=== PATIENT | male | born 1940 | race Caucasian/White ===

== ENCOUNTER → 2017-08-28 14:01 | Outpatient (CLI) | payer MEDICARE, OTHER, SELFPAY ==
--- NOTE | 2017-08-28 14:26 | CT_ITS ---
CT chest wo con HISTORY: May.REASON: GRANULOMATOUS PNEUMONIA ORDERING PHYSICIAN: Aaron Rivers MD PATIENT AGE: 77 years TECHNIQUE: Axial images obtained. Sagittal and coronal reformatted images are also generated and reviewed. CONTRAST: None COMPARISON: None FINDINGS: There is mild prominence of the ascending aorta measuring up to 4.2 cm unchanged. There are coronary artery calcifications. The heart size is normal. No mediastinal or hilar mass or adenopathy is evident. Centrilobular emphysematous changes are present. The rounded opacity previously noted in the right lung base has resolved. There are some fibrotic or atelectatic changes in the right lower lobe superior to the previously noted lesion. There is some infiltrate in the left lung base posteriorly. The left hemidiaphragm is elevated with some stranding of the retroperitoneal fat the left. There is a large left parapelvic renal cyst. IMPRESSION: 1. Near complete resolution of previously noted right lower lobe mass consistent with inflammatory or infectious etiology. There is some residual atelectasis or fibrosis in the right lower lobe posteriorly. 2. Centrilobular emphysema. 3. Patchy infiltrate or atelectasis in the left lung base posteriorly.
== END ==
PROVIDERS: Family Provider Family Medicine; PCP Family Medicine; Visit Provider Internal Medicine
DX: J18.9 Pneumonia, unspecified organism (principal)
CPT/HCPCS: 71250

== ENCOUNTER → 2017-09-04 08:35 | Outpatient (CLI) | payer MEDICARE, OTHER, SELFPAY ==
[2017-09-04 10:00] LABS: Alanine Aminotransferase 27 U/L (12-78); Aspartate Amino Transferase 15 U/L (15-37); Creatinine,Serum 1.13 mg/dL (0.70-1.30); Estimated Glomerular Filt Rate 63 ml/min (>60); GFR (African American) 76 ML/MIN (>60)
[2017-09-04 10:20] LABS: Albumin Level 3.9 gm/dL (3.4-5.0); Alkaline Phosphatase 111 U/L (46-116); Bilirubin,Total 0.7 mg/dL (0.2-1.0); Blood Urea Nitrogen 17 mg/dL (7-18); Calcium 8.8 mg/dL (8.5-10.1); Carbon Dioxide 27 mmol/L (21.0-32.0); Chol/HDL Ratio 2.4 (1-3.5); Cholesterol 127 mg/dL (140-200); Globulin 3.9 gm/dl (1.3-3.2); Glucose 94 mg/dL (74-106); HDL Cholesterol 52 mg/dL (27-67); LDL Cholesterol 60 mg/dL (0-130); Total Protein,Serum 7.8 gm/dL (6.4-8.2); Triglycerides 73 mg/dL (30-200); VLDL Cholesterol 15 mg/dL (0-40)
[2017-09-04 18:12] LABS: Anion Gap 14.2 mEq/L (5-15); Chloride 103 mmol/L (98-107); Potassium 4.2 mmoL/L (3.5-5.1); Sodium 140 mmol/L (136-145)
== END ==
PROVIDERS: Visit Provider Physician Assistant
DX: E78.5 Hyperlipidemia, unspecified (principal); I25.10 Atherosclerotic heart disease of native coronary artery without angina pectoris; I65.29 Occlusion and stenosis of unspecified carotid artery
CPT/HCPCS: 36415; 80053; 80061

== ENCOUNTER → 2017-09-05 11:39 | Outpatient (POV) | payer MEDICARE, OTHER, SELFPAY | PROVIDERS: Family Provider Family Medicine; PCP Family Medicine; Visit Provider Internal Medicine | DX: Z00.00 Encounter for general adult medical examination without abnormal findings (principal) ==

== ENCOUNTER 2018-01-29 09:38 | Inpatient (IN) ==
[2018-01-29 10:06] LABS: Basophils # 0.1 K/mm3 (0-0.2); Basophils % 0.5 % (0.1-2.0); Eosinophils # 0.2 K/mm3 (0.0-0.4); Eosinophils % 1.2 % (0.1-12.0); Hematocrit 43.8 % (42.0-52.0); Hemoglobin 14.8 g/dL (14.1-18.0); Lymphocytes # 1.9 K/mm3 (0.7-4.5); Lymphocytes % 13.2 K/mm3 (10-50); Mean Corpuscular HGB Conc 33.9 g/dL (31.8-35.4); Mean Corpuscular Hemoglobin 32.7 pg (27.0-31.2); Mean Corpuscular Volume 96.5 fl (80-94); Mean Platelet Volume 7.4 fl (7.4-10.4); Monocytes # 0.8 K/mm3 (0.1-1.0); Monocytes % 5.3 % (1.7-9.3); Neutrophils # 11.4 K/mm3 (1.8-7.8); Neutrophils % 79.9 % (37.0-80.0); Platelet Count 231 K/mm3 (142-424); Red Blood Count 4.54 M/mm3 (4.60-6.20); Red Cell Distribution Width 14.3 % (11.5-17.5); White Blood Count 14.2 K/mm3 (4.8-10.8)
--- NOTE | 2018-01-29 10:14 | Emergency Department Note ---
ED Disposition Clinical Impression: Acute on chronic respiratory failure with hypoxemia Altered mental status Qualifiers: Altered mental status type: disorientation Qualified Code(s): R41.0 - Disorientation, unspecified Disposition: Admitted as Observation Condition on Discharge: Fair Instructions: DI for Altered Mental Status Additional Instructions: Discussed with Dr. Rice and he is admitting to OBS for Confusion and Acute on Chronic respiratory failure with hypoxia Referrals: Enrique Danielson MD [Primary Care Provider] - Juan Rice MD [Staff Physician] - Time of Disposition: 11:52 - Critical Care Critical Care Time: No Attestation: On 01/29/18, the high probability of a clinically significant, sudden or life threatening deterioration of the following system(s) required my full and direct attention, intervention and personal management. The time I documented below is in addition to time spent performing reported procedures but includes the following listed in this critical care notation. Medical Decision Making - Medical Records Medical records reviewed: Yes: I reviewed the patient's medical records. - Elias Inquiry Pt receiving controlled substance: No Elias was queried for this patient: No Vital Signs: 01/29/18 09:47 01/29/18 10:35 01/29/18 11:27 Temperature 97.9 F Temperature Source Oral Pulse Rate [Right Brachial] 75 69 65 Respiratory Rate 20 18 16 Blood Pressure [Right Arm] 134/82 152/88 152/88 Blood Pressure Mean [Right Arm] 99 109 109 Blood Pressure Source [Right Arm] Automatic Cuff Automatic Cuff Automatic Cuff Blood Pressure Position [Right Arm] Supine Sitting Sitting 02 Sat by Pulse Oximetry 86 L 93 L 93 L Oxygen Delivery Method Room Air Nasal Cannula Nasal Cannula Oxygen Flow Rate (LPM) 2 2 - Lab Data Lab results reviewed: Yes: I reviewed the patient's lab results. Lab Results 01/29/18 10:00: WBC 14.2 H, RBC 4.54 L, Hgb 14.8, Hct 43.8, MCV 96.5 H, MCH 32.7 H, MCHC 33.9, RDW 14.3, Plt Count 231, MPV 7.4, Neut % (Auto) 79.9, Lymph % (Auto) 13.2, [place] % (Auto) 5.3, Eos % (Auto) 1.2, Baso % (Auto) 0.5, Neut # ( Auto) 11.4 H, Lymph # (Auto) 1.9, [place] # (Auto) 0.8, Eos # (Auto) 0.2, Baso # ( Auto) 0.1 01/29/18 10:00: Sodium 141, Potassium 3.7, Chloride 106, Carbon Dioxide 26, Anion Gap 12.7, BUN 15, Creatinine 1.14, Estimated Creat Clear 44, Estimated GFR 62, Est GFR ( Amer) 75, Glucose 96, Calcium 8.5, Total Bilirubin 0.7 , AST 19, ALT 28, Alkaline Phosphatase 108, Troponin I < 0.02, Total Protein 7.4 , Albumin 3.4, Globulin 4.0 H, Albumin/Globulin Ratio 0.9 L 01/29/18 11:00: Specimen Source L. radial, O2 % 2 lpm, ABG pH 7.46 H, ABG pCO2 31.5 L, ABG pO2 61.1 L, ABG HCO3 21.7 L, ABG Total CO2 22.7 L, ABG O2 Saturation 91, ABG Base Excess -2.1, Braxton Test Acceptable Result diagrams: 01/29/18 10:00 01/29/18 10:00 Orders (Tests/Meds): ED MEDICATIONS Discontinued Medications Generic Name Dose Route Start Last Admin Trade Name Freq PRN Reason Stop Dose Admin Lisinopril 5 mg 01/30/18 11:00 Zestril 5mg Tablet PO 01/30/18 11:01 ONCE ONE Lisinopril 5 mg 01/29/18 11:00 01/29/18 11:12 Zestril 5mg Tablet PO 01/29/18 11:01 5 mg ONCE ONE Administration Propranolol HCl 80 mg 01/29/18 11:00 01/29/18 11:39 Inderal 40mg Tablet PO 01/29/18 11:01 Not Given ONCE ONE ORDERS Category Date Time Status XR chest AP Stat Exams 01/29/18 10:12 Taken XR pelvis 1-2V Stat Exams 01/29/18 10:12 Taken Urinalysis and Microscopic Stat Lab 01/29/18 09:58 Ordered - Radiology Data #1 Image(s): Chest, Pelvis Image Reviewed: Yes I reviewed the patient's radiology results, Yes I reviewed the patient's radiology image Preliminary Findings: Normal/NAD - CT Data CT Scan: Head Time Received: 11:[address] Reviewed: Yes: I have reviewed the patient's CT results, I discussed the CT results w/the radiologist, I have viewed the radiologist's interpretation Findings Narrative: No acute intracranial findings. No hemorrhage. No territorial infarct. Diffuse cerebral atrophy, somewhat advanced for age . Atrophy most likely accounts for the dilatation and prominence of the lateral ventricles. Prominent chronic small vessel deep white matter ischemic gliotic changes at cerebral hemispheres bilateral. A prominent right transverse sinus incidentally noted, & accounts this appearance of posterior to the tentorium (Note: I favor this merely reflects an asymmetric prominent patent right transverse sinus but if there should be significant neurologic or or progressive symptoms, consider a postcontrast CTA/ CTV to further exclude abnormality and confirm normal flow at right transverse sinus) . Large focal calcification at the anterior falx 11 mm wide x 15 mm AP. Most likely exuberant falx calcification but follow-up within the next year may be of benefit to exclude unlikely developing calcified meningioma - ECG Data Tracing #1 NSR and normal EKG ECG initial impression date: 01/29/18 ECG initial impression time: 10:25 Altered Mental Status HPI - General Chief Complaint: Altered Mental Status Stated Complaint: falling confused Time Seen by Provider: 01/29/18 10:06 Mode of Arrival: Family Vehicle Limitations: No Limitations Description of Symptoms (Recalled from ER Triage Doc. by RN): C/O CONFUSION AND FALLING ALOT. STATES DR DANIELSON STARTED HIM ON AN UNKNOWN MEDICATION FOR MEMORY LAST MONDAY AND HE STARTED BECOMING INCREASINGLY CONFUSED AND FALLING ALOT. THEN STATES SHE TOOK HIM OFF [facility] ON MONDAY BUT SYMPTOMS HAVE PERSISTED AND UNABLE TO GET APPOINTMENT WITH DR DANIELSON UNTIL WED THIS WEEK. UPON QUESTIONING PATIENT ANSWERS QUESTIONS APPROPRIATELY TO WHERE HE WAS AND VARIOUS OTHER QUESTIONS - History of Present Illness HPI narrative: complains of worsening confusion and falling a lot oer the past couple of weeks. Dr. Danielson started him on Namzaric about 2 weeks ago for memory problems and according to his he has been more confused and falling a lot more. She took him off the meds on but the symptoms have persisted and he is not able to get an appointment with Dr. Danielson until Mons. He is complaining of headaches and dizziness and last night fell out of bed twice. No syncope but is acting drunk and he does not drink. He knows he is at the [facility] but he thinks it is January 1988. On arrival his XS=777 /82 but after coming back from [facility], his YP=385/106 ...also on arrival his O2 Sat was 86% on RA....he is on CPAP at night with 2L O2 and after being put on 2L NC O2, his O2 Sat=93% MD complaint: altered mental status, confusion Onset (ago): day(s) Timing confirmed by: spouse Severity: moderate Consistency of symptoms: getting worse, constant - Related Data Home Medications Medication Instructions Recorded Confirmed Aspirin [Adult Low Dose Aspirin EC] 81 mg PO DAILY 01/29/18 01/29/18 Atorvastatin Calcium [Atorvastatin 40 mg PO HS 01/29/18 01/29/18 40mg Tab] Atorvastatin Calcium [Lipitor 20mg 20 mg PO HS 01/29/18 01/29/18 Tablet] Lisinopril [Lisinopril 5mg Tablet] 5 mg PO DAILY 01/29/18 01/29/18 Memantine HCl/Donepezil HCl 1 each PO HS 01/29/18 01/29/18 [Namzaric 28 mg-10 mg Capsule] Primidone [Mysoline 250mg tablet] 250 mg PO TID 01/29/18 01/29/18 Propranolol HCl [Propranolol HCl 80 mg PO DAILY 01/29/18 01/29/18 ER] Umeclidinium Brm/Vilanterol Tr 1 inhalation PO DAILY 01/29/18 01/29/18 [Anoro Ellipta 62.5-25 Mcg INH] Allergies Allergy/AdvReac Type Severity Reaction Status Date / Time No Known Allergies Allergy Verified 01/29/18 09:56 [facility] History I have reviewed the patient's past medical history: Yes Medical History: Denies:: Cancer, Diabetes Mellitus Type 1, Diabetes Mellitus Type 2, Internal Pacemaker, MRSA Other Surgeries: No: Pacemaker Amputation: No - Social History Smoking Status: Former smoker Tobacco Type: e-cigarettes Alcohol Intake: former - Psychiatric History Expresses thoughts of harming self/others: None Suicide Plan Description: No Plan ROS Obtained: Yes All systems reviewed & no additional complaints - Constitutional Constitutional: Reports system reviewed and no additional complaints, except as docu, Reports as per HPI, Reports frequent falls, Reports headache(s) - Neurologic Neurologic: Reports system reviewed and no additional complaints, except as docu , Reports as per HPI, Reports unsteadiness, Reports dizziness, Reports frequent falls, Reports headache(s) Physical Exam - General General appearance: alert, in no apparent distress - Eye Eye exam: Present: normal appearance - ENT ENT exam: Present: normal exam - Respiratory Respiratory exam: Present: normal lung sounds bilaterally - Cardiovascular Cardiovascular exam: Present: regular rate, normal rhythm - Neurological Exam Neurological exam: Present: alert, oriented X3 - Psychiatric Psychiatric exam: Present: normal affect
[2018-01-29 10:22] LABS: Alanine Aminotransferase 28 U/L (12-78); Albumin Level 3.4 gm/dL (3.4-5.0); Albumin/Globulin Ratio 0.9 (1.1-1.8); Alkaline Phosphatase 108 U/L (46-116); Anion Gap 12.7 mEq/L (5-15); Aspartate Amino Transferase 19 U/L (15-37); Bilirubin,Total 0.7 mg/dL (0.2-1.0); Blood Urea Nitrogen 15 mg/dL (7-18); Calcium 8.5 mg/dL (8.5-10.1); Carbon Dioxide 26 mmol/L (21.0-32.0); Chloride 106 mmol/L (98-107); Glucose 96 mg/dL (74-106); Potassium 3.7 mmoL/L (3.5-5.1); Sodium 141 mmol/L (136-145); Total Protein,Serum 7.4 gm/dL (6.4-8.2)
[2018-01-29 11:04] LABS: ABG Base Excess -2.1 mmol/L (-2.4-2.3); ABG HCO3 21.7 mmhg (22.0-26.0); ABG Oxygen Saturation 91 % (90-100); ABG PCO2 31.5 mmhg (35.0-45.0); ABG PH 7.46 mmol/L (7.35-7.45); ABG PO2 61.1 mmhg (80-100); ABG TCO2 22.7 mmhg (23-27)
[2018-01-29 11:05] LABS: Allen's Test ACCEPTABLE; Oxygen 2 LPM %
--- NOTE | 2018-01-29 13:15 | Pharmacy Consult Notes ---
[facility] Pharmacy VTE Monitoring - Patient Demographics Admission date: 01/29/18 Report Date: 01/29/18 Time: 13:15 Allergies/Adverse Reactions: Patient Allergies No Known Allergies Allergy (Verified 01/29/18 09:56) Height: 1.73 m Weight: 60.413 kg Patient Problems: Current Active Problems Altered mental status (Acute) Acute on chronic respiratory failure with hypoxemia (Acute) - VTE Risk Labs: VTE Related Lab Results Hgb 14.8 g/dL (14.1-18.0) 01/29/18 10:00 Hct 43.8 % (42.0-52.0) 01/29/18 10:00 Plt Count 231 K/mm3 (142-424) 01/29/18 10:00 BUN 15 mg/dL (7-18) 01/29/18 10:00 Creatinine 1.14 mg/dL (0.70-1.30) 01/29/18 10:00 Estimated Creat Clear 44 mL/min (0-300) 01/29/18 10:00 Was VTE Risk Assessment Performed: Yes VTE Score: 3 VTE Risk Level: Low Risk - Prophylaxis VTE Prophylaxis Ordered?: Yes Types of VTE Prophylaxis: TEDS Knee High Location of Applied Device: Bilateral Lower Extremeties - VTE Diagnosis Confirmed Treatment or plan recommended: Continue Current Treatment
[2018-01-29 14:01] LABS: Microscopic, Urine URINE MICROSCOPIC (MICROSCOPIC)
[2018-01-29 14:07] LABS: Appearance,Urine SL CLOUDY (Clear); Bilirubin,Urine Negative (Negative); Blood, Urine Negative (Negative); Color,Urine YELLOW (Yellow); Glucose,Urine (UA) Negative (Negative); Ketones,Urine Negative (Negative); Leukocyte Esterase,Urine Negative (Negative); Protein,Urine Negative (Negative); Specific Gravity, Urine <= 1.005 (1.005-1.030); Urobilinogen,Urine 0.2 EU/dl (0.2)
[2018-01-29 14:18] LABS: Squamous Epithelial Cell,Urine Occasional #/hpf (0-5)
--- NOTE | 2018-01-29 16:41 | History & Physical Report ---
*Admission Date: 01/29/18 *Chief complaint: Confusion and weakness *History of present illness: She recently visited both his local physician (Dr. EDWIN aDnielson) and a neurologist (Dr. Villanueva) over concerns about intermittent episodes of memory loss. Patient had been started on a trial of donepezil 5 mg which he tolerated. At a follow- up visit less than 2 weeks ago he was placed on Namzaric. Within 4 days of starting this medication and to notice difficulty ambulating and he was staggering around as if he was drunk. Patient did used to drink alcohol but that has not been the case this time. His primary care provider was contacted and he recommended discontinuing the medicine after 4 days of use. Patient stopped the medication approximately 4 days ago but was brought to the hospital this morning by family when he was still confused and was still having occult he ambulating. At the time of interview patient is alone. He is oriented to person and place. He does not remember the events of his emergency room visit. [facility] History I have reviewed the patient's past medical history: Yes Medical History: Reports:: Hypertension, Myocardial Infarction Denies:: Cancer, Diabetes Mellitus Type 1, Diabetes Mellitus Type 2, Internal Pacemaker, MRSA Comment: Memory loss Laterality Cases: Left: Arthroscopy Knee, Bilateral: Other Other Surgeries: No: Pacemaker Amputation: No - *Social History Smoking Status: Current every day smoker Tobacco Type: e-cigarettes Alcohol Intake: former Occupational Status: retired Household Members: spouse - Psychiatric History Expresses thoughts of harming self/others: None Suicide Plan Description: No Plan *Family Hx:: Cancer Review of Systems - Review of Systems Review of systems:: pertinent systems reviewed and negative unless documented below - Constitutional Denies body ache(s), Denies chills - Eyes Denies blind spots, Denies blurry vision - *Cardiovascular Denies chest pain, Denies chest pain at rest - *Respiratory Denies cough - *Gastrointestinal Denies abdominal pain - *Neurologic Reports unsteadiness, Reports dizziness, Reports frequent falls, Reports headache(s) Meds Home Medications Medication Instructions Recorded Confirmed Type Aspirin [Adult Low Dose Aspirin EC] 81 mg PO DAILY 01/29/18 01/29/18 History Atorvastatin Calcium [Atorvastatin 40 mg PO HS 01/29/18 01/29/18 History 40mg Tab] Lisinopril [Lisinopril 5mg Tablet] 5 mg PO DAILY 01/29/18 01/29/18 History Primidone [Mysoline 50mg tablet] 225 mg PO HS 01/29/18 01/29/18 History Propranolol HCl [Propranolol HCl 80 mg PO DAILY 01/29/18 01/29/18 History ER] Umeclidinium Brm/Vilanterol Tr 1 puff PO DAILY 01/29/18 01/29/18 History [Anoro Ellipta 62.5-25 Mcg INH] Allergies Allergy/AdvReac Type Severity Reaction Status Date / Time No Known Allergies Allergy Verified 01/29/18 09:56 Exam Vital signs and Labs for Last 24 Hours: Temp Pulse Resp BP Pulse Ox 98.0 F 71 22 150/79 90 L 01/29/18 15:42 01/29/18 15:42 01/29/18 15:42 01/29/18 15:42 01/29/18 15:42 Laboratory Results - last 24 hr 01/29/18 10:00: WBC 14.2 H, RBC 4.54 L, Hgb 14.8, Hct 43.8, MCV 96.5 H, MCH 32.7 H, MCHC 33.9, RDW 14.3, Plt Count 231, MPV 7.4, Neut % (Auto) 79.9, Lymph % (Auto) 13.2, [place] % (Auto) 5.3, Eos % (Auto) 1.2, Baso % (Auto) 0.5, Neut # ( Auto) 11.4 H, Lymph # (Auto) 1.9, [place] # (Auto) 0.8, Eos # (Auto) 0.2, Baso # ( Auto) 0.1 01/29/18 10:00: Sodium 141, Potassium 3.7, Chloride 106, Carbon Dioxide 26, Anion Gap 12.7, BUN 15, Creatinine 1.14, Estimated Creat Clear 44, Estimated GFR 62, Est GFR ( Amer) 75, Glucose 96, Calcium 8.5, Total Bilirubin 0.7 , AST 19, ALT 28, Alkaline Phosphatase 108, Troponin I < 0.02, Total Protein 7.4 , Albumin 3.4, Globulin 4.0 H, Albumin/Globulin Ratio 0.9 L 01/29/18 11:00: Specimen Source L. radial, O2 % 2 lpm, ABG pH 7.46 H, ABG pCO2 31.5 L, ABG pO2 61.1 L, ABG HCO3 21.7 L, ABG Total CO2 22.7 L, ABG O2 Saturation 91, ABG Base Excess -2.1, Braxton Test Acceptable 01/29/18 13:50: Urine Color Yellow, Urine Appearance Sl cloudy, Urine pH 7.0, Ur Specific [place] <= 1.005, Urine Protein Negative, Urine Glucose (UA) Negative, Urine Ketones Negative, Urine Blood Negative, Urine Nitrate Negative, Urine Bilirubin Negative, Urine Urobilinogen 0.2, Ur Leukocyte Esterase Negative , Ur Squamous Epith Cells Occasional I & O for Last 24 hours: Intake & Output 01/27/18 01/28/18 01/29/18 01/30/18 11:59 11:59 11:59 11:59 Weight 130 lb 133 lb 3.006 oz Narrative: Patient is awake and oriented to person and place. Speech is clear. He makes good eye contact when conversing. Oropharynx is moist. Neck is without jugular venous distention. Lungs are clear to auscultation. Heart has a regular rate and rhythm. Abdomen is thin and soft. Musculoskeletal exam reveals symmetric 5 out of 5 strength in the quadriceps, hamstrings, plantar flexors and dorsiflexors. Neurologically his gait is unsteady. Patient was able to rise out of the bed unassisted. Patient ambulated approximately 8 feet to the chair. Patient did well until having to turn around at which point he lost balance but did not fall. He returned safely to his bed. H&P: Result - Labs Labs: Short CBC 01/29/18 Range/Units 10:00 WBC 14.2 H (4.8-10.8) K/mm3 Hgb 14.8 (14.1-18.0) g/dL Hct 43.8 (42.0-52.0) % Plt Count 231 (142-424) K/mm3 BMP 01/29/18 10:00 Sodium 141 Potassium 3.7 Chloride 106 Carbon Dioxide 26 BUN 15 Creatinine 1.14 Glucose 96 Calcium 8.5 Cardiac Enzymes 01/29/18 Range/Units 10:00 Troponin I < 0.02 (0.00-0.06) ng/ml Liver Function 01/29/18 Range/Units 10:00 Total Bilirubin 0.7 (0.2-1.0) mg/dL AST 19 (15-37) U/L ALT 28 (12-78) U/L Alkaline Phosphatase 108 (46-116) U/L Albumin 3.4 (3.4-5.0) gm/dL Urine 01/29/18 Range/Units 13:50 Urine Color Yellow (Yellow) Urine Appearance Sl cloudy (Clear) Urine pH 7.0 (5.0-8.5) Ur Specific [place] <= 1.005 (1.005-1.030) Urine Protein Negative (Negative) Urine Glucose (UA) Negative (Negative) Assessment and Plan (1) Altered mental status Current visit: Yes Status: Acute Qualifiers: Altered mental status type: disorientation Qualified Code(s): R41.0 - Disorientation, unspecified Category: Medical Code(s): R41.82 - Altered mental status, unspecified (2) Adverse reaction to drug Current visit: Yes Status: Acute Category: Medical Code(s): T50.905A - Adverse effect of unspecified drugs, medicaments and biological substances, initial encounter (3) COPD (chronic obstructive pulmonary disease) Current visit: Yes Status: Acute Category: Medical Code(s): J44.9 - Chronic obstructive pulmonary disease, unspecified - Assessment and plan all Dx Assessment and Plan for all problems:: Patient has been admitted for observation and will be placed on IV fluids. PT evaluation tomorrow. I believe the patient will be able to return home soon.
[2018-01-30 06:13] LABS: Basophils % 0.5 % (0.1-2.0); Eosinophils # 0.2 K/mm3 (0.0-0.4); Eosinophils % 2.4 % (0.1-12.0); Hematocrit 41.2 % (42.0-52.0); Hemoglobin 13.5 g/dL (14.1-18.0); Lymphocytes # 1.7 K/mm3 (0.7-4.5); Lymphocytes % 21.3 K/mm3 (10-50); Mean Corpuscular HGB Conc 32.7 g/dL (31.8-35.4); Mean Corpuscular Hemoglobin 31.8 pg (27.0-31.2); Mean Corpuscular Volume 97.2 fl (80-94); Mean Platelet Volume 7.6 fl (7.4-10.4); Monocytes # 0.5 K/mm3 (0.1-1.0); Monocytes % 5.8 % (1.7-9.3); Neutrophils # 5.7 K/mm3 (1.8-7.8); Platelet Count 215 K/mm3 (142-424); Red Blood Count 4.24 M/mm3 (4.60-6.20); Red Cell Distribution Width 14.3 % (11.5-17.5); White Blood Count 8.1 K/mm3 (4.8-10.8)
[2018-01-30 06:33] LABS: Albumin Level 3.1 gm/dL (3.4-5.0); Albumin/Globulin Ratio 0.9 (1.1-1.8); Anion Gap 13.8 mEq/L (5-15); Bilirubin,Total 0.6 mg/dL (0.2-1.0); Calcium 8.1 mg/dL (8.5-10.1); Globulin 3.6 gm/dl (1.3-3.2); Phosphorous 3.1 mg/dL (2.4-4.9); Potassium 3.8 mmoL/L (3.5-5.1); Total Protein,Serum 6.7 gm/dL (6.4-8.2)
--- NOTE | 2018-01-30 07:20 | Discharge Summary ---
General - General Admission date:: 01/29/18 Discharge date: 01/30/18 HPI HPI: She recently visited both his local physician (Dr. EDWIN Danielson) and a neurologist (Dr. Villanueva) over concerns about intermittent episodes of memory loss. Patient had been started on a trial of donepezil 5 mg which he tolerated. At a follow- up visit less than 2 weeks ago he was placed on Namzaric. Within 4 days of starting this medication and to notice difficulty ambulating and he was staggering around as if he was drunk. Patient did used to drink alcohol but that has not been the case this time. His primary care provider was contacted and he recommended discontinuing the medicine after 4 days of use. Patient stopped the medication approximately 4 days ago but was brought to the hospital this morning by family when he was still confused and was still having occult he ambulating. At the time of interview patient is alone. He is oriented to person and place. He does not remember the events of his emergency room visit. Hospital Course Hospital Course: Patient was admitted and placed on IV fluids. By the afternoon of admission patient's mental status had started to clear. His ability to ambulate was impaired. Patient was able to ambulate a straight line but when transitioning for turns he was very unsteady on his feet and would benefit from use of a walker. Patient was monitored overnight and mental status continued to improve. O2 sats continued to drop to the 80s on room air. Patient has underlying COPD and normally uses oxygen at night. I have recommended he begin using oxygen continuously. The following morning patient's mental status had improved. Nursing reported a brief episode of confusion overnight. He was ambulating back and forth to the bathroom under his own power. Patient was discharged home. He will follow-up with Dr. Danielson tomorrow for a previously scheduled visit Objective Vital signs: Temp Pulse Resp BP Pulse Ox 97.9 F 77 20 154/81 78 L 01/30/18 03:51 01/30/18 06:05 01/30/18 03:51 01/30/18 03:51 01/30/18 06:05 Results Labs on day of discharge: Labs from last 24 hours 01/30/18 01/30/18 01/29/18 05:51 05:51 13:50 WBC 8.1 D RBC 4.24 L Hgb 13.5 L Hct 41.2 L MCV 97.2 H MCH 31.8 H MCHC 32.7 RDW 14.3 Plt Count 215 MPV 7.6 Neut % (Auto) 70.0 Lymph % (Auto) 21.3 [place] % (Auto) 5.8 Eos % (Auto) 2.4 Baso % (Auto) 0.5 Neut # (Auto) 5.7 Lymph # (Auto) 1.7 [place] # (Auto) 0.5 Eos # (Auto) 0.2 Baso # (Auto) 0.0 Specimen Source O2 % ABG pH ABG pCO2 ABG pO2 ABG HCO3 ABG Total CO2 ABG O2 Saturation ABG Base Excess Braxton Test Sodium 142 Potassium 3.8 Chloride 109 H Carbon Dioxide 23 Anion Gap 13.8 BUN 13 Creatinine 0.91 D Estimated Creat Clear 52 Estimated GFR 80 Est GFR ( Amer) 97 D Glucose 85 Calcium 8.1 L Phosphorus 3.1 Magnesium 1.9 Total Bilirubin 0.6 AST 16 ALT 26 Alkaline Phosphatase 95 Troponin I Total Protein 6.7 Albumin 3.1 L Globulin 3.6 H Albumin/Globulin Ratio 0.9 L Urine Color Yellow Urine Appearance Sl cloudy Urine pH 7.0 Ur Specific [place] <= 1.005 Urine Protein Negative Urine Glucose (UA) Negative Urine Ketones Negative Urine Blood Negative Urine Nitrate Negative Urine Bilirubin Negative Urine Urobilinogen 0.2 Ur Leukocyte Esterase Negative Ur Squamous Epith Cells Occasional 01/29/18 01/29/18 01/29/18 11:00 10:00 10:00 WBC 14.2 H RBC 4.54 L Hgb 14.8 Hct 43.8 MCV 96.5 H MCH 32.7 H MCHC 33.9 RDW 14.3 Plt Count 231 MPV 7.4 Neut % (Auto) 79.9 Lymph % (Auto) 13.2 [place] % (Auto) 5.3 Eos % (Auto) 1.2 Baso % (Auto) 0.5 Neut # (Auto) 11.4 H Lymph # (Auto) 1.9 [place] # (Auto) 0.8 Eos # (Auto) 0.2 Baso # (Auto) 0.1 Specimen Source L. radial O2 % 2 lpm ABG pH 7.46 H ABG pCO2 31.5 L ABG pO2 61.1 L ABG HCO3 21.7 L ABG Total CO2 22.7 L ABG O2 Saturation 91 ABG Base Excess -2.1 Braxton Test Acceptable Sodium 141 Potassium 3.7 Chloride 106 Carbon Dioxide 26 Anion Gap 12.7 BUN 15 Creatinine 1.14 Estimated Creat Clear 44 Estimated GFR 62 Est GFR ( Amer) 75 Glucose 96 Calcium 8.5 Phosphorus Magnesium Total Bilirubin 0.7 AST 19 ALT 28 Alkaline Phosphatase 108 Troponin I < 0.02 Total Protein 7.4 Albumin 3.4 Globulin 4.0 H Albumin/Globulin Ratio 0.9 L Urine Color Urine Appearance Urine pH Ur Specific [place] Urine Protein Urine Glucose (UA) Urine Ketones Urine Blood Urine Nitrate Urine Bilirubin Urine Urobilinogen Ur Leukocyte Esterase Ur Squamous Epith Cells DS: Diagnosis - Discharge Diagnosis (1) Altered mental status Status: Acute (2) Adverse reaction to drug Status: Acute (3) COPD (chronic obstructive pulmonary disease) Status: Acute Discharge Plan - Patient Discharge Instructions - Follow up Plan Home Medications: Home Medications Medication Instructions Recorded Confirmed Type Aspirin [Adult Low Dose Aspirin EC] 81 mg PO DAILY 01/29/18 01/29/18 History Atorvastatin Calcium [Atorvastatin 40 mg PO HS 01/29/18 01/29/18 History 40mg Tab] Lisinopril [Lisinopril 5mg Tablet] 5 mg PO DAILY 01/29/18 01/29/18 History Primidone [Mysoline 50mg tablet] 225 mg PO HS 01/29/18 01/29/18 History Propranolol HCl [Propranolol HCl 80 mg PO DAILY 01/29/18 01/29/18 History ER] Umeclidinium Brm/Vilanterol Tr 1 puff PO DAILY 01/29/18 01/29/18 History [Anoro Ellipta 62.5-25 Mcg INH] Prescriptions/Medication Reconciliation: No Action Propranolol HCl [Propranolol HCl ER] 80 mg PO DAILY Lisinopril [Lisinopril 5mg Tablet] 5 mg PO DAILY Atorvastatin Calcium [Atorvastatin 40mg Tab] 40 mg PO HS Aspirin [Adult Low Dose Aspirin EC] 81 mg PO DAILY Primidone [Mysoline 50mg tablet] 225 mg PO HS Umeclidinium Brm/Vilanterol Tr [Anoro Ellipta 62.5-25 Mcg INH] 1 puff PO DAILY
== END 2018-01-30 09:25 | disposition home or self-care (01) ==
LOC: ER 09:38 → 2ND 12:01
PROVIDERS: ADMIT Family Medicine; ATTEND Family Medicine

== ENCOUNTER → 2018-02-08 13:52 | Outpatient (CLI) | payer MEDICARE, OTHER, SELFPAY ==
--- NOTE | 2018-02-08 14:33 | XR_ITS ---
XR ribs RT min 3V w CXR1V HISTORY: Right-sided chest/rib pain following injury ITS.REASON: RT RIB PAIN ORDERING PHYSICIAN: Juan Rice MD PATIENT AGE: 77 years Comparison: 01/29/2018 FINDINGS: Frontal view of the chest shows changes of COPD with hyperinflation and attenuation of the peripheral pulmonary vessels. Normal heart size. No lobar consolidation or collapse. Multiple views of the right ribs show minimal cortical irregularity involving the anterior aspect of the right fifth rib suspicious for a subtle nondisplaced fracture. There may be old fractures of the right seventh and eighth ribs. There is mild lower thoracic curvature convex right. No evidence of pneumothorax. IMPRESSION: COPD with suspected nondisplaced right fifth rib fracture anteriorly
[2018-02-08 16:08] LABS: Blood Urea Nitrogen 19 mg/dL (7-18); Creatinine,Serum 0.98 mg/dL (0.70-1.30); Estimated Glomerular Filt Rate 74 ml/min (>60); GFR (African American) 89 ML/MIN (>60)
== END ==
PROVIDERS: PCP Family Medicine; Visit Provider Family Medicine
DX: R07.81 Pleurodynia (principal); R42 Dizziness and giddiness
CPT/HCPCS: 36415; 71101; 82565; 84520

== ENCOUNTER → 2018-02-12 10:31 | Outpatient (CLI) | payer MEDICARE, OTHER, SELFPAY ==
--- NOTE | 2018-02-12 10:35 | MR_ITS ---
MR head/brain wo/w con HISTORY: Memory loss, dizziness, giddiness ITS.REASON: DIZZINESS, GIDDINESS ORDERING PHYSICIAN: Enrique Danielson MD PATIENT AGE: 77 years Comparison: 01/29/2018 TECHNIQUE: Standard multiplanar multiecho sequences are performed without and with gadolinium enhancement. FINDINGS: There is diffuse atrophy with periventricular ischemic gliotic changes. Numerous perivascular dilated spaces are present within the basal ganglia. No evidence of acute infarction. Diffuse Periventricular and subcortical T2 white matter hyperintensities present consistent with ischemic gliotic change from microvascular disease. The cerebellopontine angles and cerebellum have an unremarkable appearance. There is slight increase T2 signal of the maria g also likely related to ischemic microangiopathy. There is a 1.4 by 1.4 x 1.1 cm area of marked decreased T2 signal involving the anterior aspect of the falx. This is isointense on T1 and does show some mild contrast enhancement likely related to a falx meningioma as noted on previous head CT scan. No mass effect. No other abnormal areas of enhancement apparent. The patella. And optic chiasm are unremarkable. There is moderate mucosal thickening of the right maxillary sinus. IMPRESSION: 1. Diffuse atrophy with chronic periventricular ischemic gliotic change and numerous perivascular dilated spaces. 2. No acute intracranial findings. 3. Probable small meningioma anterior falx. 4. Right maxillary sinus disease
--- NOTE | 2018-02-12 11:51 | HMH.ITSHM ---
MYSOLINE ATORVASTATIN LISINOPRIL PROPRANOLOL ASPIRIN CENTRIUM SILVER MULTI VITAMIN
== END ==
PROVIDERS: Family Provider Family Medicine; PCP Family Medicine; Visit Provider Family Medicine
DX: R42 Dizziness and giddiness (principal)
CPT/HCPCS: 70553; A9576

== ENCOUNTER → 2019-06-28 11:52 | Outpatient (CLI) | payer MEDICARE, OTHER, SELFPAY ==
--- NOTE | 2019-06-28 11:59 | XR_ITS ---
PROCEDURE: XR KUB CLINICAL INDICATION: DECRASED URINATION, FLANK PAIN COMPARISON: No exams were available for comparison FINDINGS: Mild lumbar scoliosis convex left. Diffuse vascular calcification. Nonspecific nonobstructive bowel gas pattern. Multiple calcifications overlie both kidneys and may be vascular. CT may confirm. IMPRESSION: Diffuse vascular calcifications with lumbar scoliosis convex left Dictated by: Braxton Mcclendon MD 06/28/2019 17:54 Electronically signed by Braxton Mcclendon MD in [place] 06/28/2019 17:54
== END ==
PROVIDERS: PCP Nurse Practitioner Family; Visit Provider Nurse Practitioner Family
DX: R34 Anuria and oliguria (principal); R10.9 Unspecified abdominal pain
CPT/HCPCS: 74018

== ENCOUNTER 2019-08-25 12:02 | Inpatient (IN) ==
--- NOTE | 2019-08-25 12:31 | Emergency Department Note ---
ED Disposition Clinical Impression: Confusion, Influenza B, Acute kidney injury, Dehydration Community acquired pneumonia Qualifiers: Laterality: left Lung location: unspecified part of lung Qualified Code(s): J18.9 - Pneumonia, unspecified organism Respiratory failure with hypoxia Qualifiers: Chronicity: acute on chronic Qualified Code(s): J96.21 - Acute and chronic respiratory failure with hypoxia Disposition: Admitted As Inpatient Condition on Discharge: Fair - Critical Care Critical Care Time: Yes Attestation: On , the high probability of a clinically significant, sudden or life threatening deterioration of the following system(s) required my full and direct attention, intervention and personal management. The time I documented below is in addition to time spent performing reported procedures but includes the following listed in this critical care notation. Total Critical Care Time: 40 Vital system(s) involved:: Respiratory Failure My critical care processes included: Assessment & monitoring of V/S, Initial and Re-exams, Data Review/Interpretation, Coordinating Care, Medication Orders and management, Documentation Medical Decision Making - Elias Inquiry Pt receiving controlled substance: No Vital Signs: 08/25/19 12:23 Temperature 97.9 F Temperature Source Oral Pulse Rate [Right Radial] 83 Respiratory Rate 20 Blood Pressure [Right Arm] 109/71 L Blood Pressure Mean [Right Arm] 83 02 Sat by Pulse Oximetry 94 L - Lab Data Lab Results 08/25/19 12:25: WBC 11.6 H, RBC 5.23, Hgb 16.9, Hct 50.7, MCV 96.9 H, MCH 32.3 H , MCHC 33.3, RDW 13.9, Plt Count 209, MPV 9.0, Neut % (Auto) 75.4, Lymph % (Auto) 14.9, Sharp % (Auto) 8.9, Eos % (Auto) 0.1, Baso % (Auto) 0.7, Neut # (Auto) 8.7 H, Lymph # (Auto) 1.7, Sharp # (Auto) 1.0, Eos # (Auto) 0.0, Baso # (Auto) 0.1 08/25/19 12:25: Sodium 141, Potassium 4.0, Chloride 103, Carbon Dioxide 21, Anion Gap 21.0 H, BUN 42 H, Creatinine 1.63 H, Estimated Creat Clear 27, Estimated GFR 41 L, Est GFR ( Amer) 49 L, Glucose 109 H, Calcium 8.8, Total Bilirubin 1.2 H, AST 44 H, ALT 36, Alkaline Phosphatase 83, Troponin I < 0.02, Total Protein 8.4 H D, Albumin 3.9, Globulin 4.5 H, Albumin/Globulin Ratio 0.9 L 08/25/19 12:25: Lactate 1.8 08/25/19 12:28: Specimen Source Right radial, O2 % 21, ABG pH 7.40, ABG pCO2 29.7 L, ABG pO2 46.2 L, ABG HCO3 17.9 L, ABG Total CO2 18.8 L, ABG O2 Saturation 82 L*, ABG Base Excess -6.9 L, Braxton Test Acceptable 08/25/19 13:08: Influenza Type A Ag Negative, Influenza Type B Ag Positive A 08/25/19 13:26: Urine Color Yellow, Urine Appearance Clear, Urine pH 5.0, Ur Specific [place] >= 1.030, Urine Protein 1+, Urine Glucose (UA) Negative, Urine Ketones 1+, Urine Blood 2+, Urine Nitrate Negative, Urine Bilirubin Negative, Urine Urobilinogen 1.0, Ur Leukocyte Esterase Negative, Urine RBC 5-10, Urine WBC 3-5, Ur Squamous Epith Cells 3-5, Amorphous Sediment 1+, Urine Bacteria None, Hyaline Casts Occasional Result diagrams: 08/25/19 12:25 08/25/19 12:25 Orders (Tests/Meds): ED MEDICATIONS Generic Name Dose Route Start Last Admin Trade Name Freq PRN Reason Stop Dose Admin Ceftriaxone Sodium 1 gm/ 50 mls @ 100 mls/hr 08/25/19 13:45 08/25/19 14:02 Sodium Chloride IV 09/08/19 13:44 100 mls/hr Q24H YIMI Administration Protocol Azithromycin 500 mg/ Sodium 250 mls @ 250 mls/hr 08/25/19 13:45 08/25/19 14:05 Chloride IV 09/08/19 13:44 250 mls/hr Q24H YIMI Administration Protocol Sodium Chloride 3 ml 08/25/19 12:28 Sodium Chloride 3% 15ml Neb IH 09/24/19 12:27 ONCE PRN INDUCE SPUTUM COLLECTION Discontinued Medications Generic Name Dose Route Start Last Admin Trade Name Freq PRN Reason Stop Dose Admin Sodium Chloride 1,000 mls @ 999 mls/hr 08/25/19 13:00 08/25/19 12:58 Sod Chlor 0.9% 1000ml Bag IV 08/25/19 14:00 999 mls/hr .Q1H1M YIMI Administration Oseltamivir Phosphate 75 mg 08/25/19 13:44 08/25/19 14:05 Tamiflu 75mg Capsule PO 08/25/19 13:45 75 mg ONCE ONE Administration ORDERS Category Date Time Status Troponin I Q3H Lab 08/25/19 15:30 Ordered Troponin I Q3H Lab 08/25/19 18:30 Ordered Blood Culture Stat Micro 08/25/19 12:58 Received Sputum Culture & Gram Stain Stat Micro 08/25/19 12:28 Ordered - Radiology Data #1 Image(s): Chest Image Reviewed: Yes I reviewed the patient's radiology image, Yes I have reviewed radiologist's interpretation PROCEDURE: XR CHEST PORTABLE CLINICAL HISTORY: AMS, WEAKNESS COMPARISON: CXR CHEST(2 VIEWS-NOT PORTABLE) from 05/15/[address] chest wo con from 08/28/2017 CXR2 XR chest AP from 01/29/2018 [id number] XR ribs RT min 3V w CXR1V from 02/08/2018 FINDINGS: The heart is not enlarged. There is an atherosclerotic aorta without CHF. Mild prominence of superior mediastinal shadow is noted and not significantly changed. Thyroid enlargement is favored. There are new infiltrates in the left mid lung field. Acute pneumonia should be considered 1st. Some nodularity of the infiltrate overlying the posterior left 7th rib is noted. Follow-up after period of treatment for pneumonia is recommended in attempt to confirm complete clearing to ensure benign etiology. Lungs are emphysematous but otherwise clear. No acute bony abnormalities. IMPRESSION: New infiltrates in the left lateral lung field. Pneumonia is suspected. Follow-up recommended to confirm complete clearing. Dictated by: Josesito Redmond 08/25/2019 13:37 Electronically signed by Josesito Redmond in [place] 08/25/2019 13:37 - CT Data CT Scan: Head Time Received: 14:[address] Reviewed: Yes: I have viewed the radiologist's interpretation Findings Narrative: PROCEDURE: CT HEAD/BRAIN WO CON CLINICAL INDICATION: ams COMPARISON: HEADWO CT head/brain wo con from 01/29/2018 TECHNIQUE: Axial images obtained. All CT scans at the facility use one or more dose reduction, viz: automated exposure control, ma/kV adjustment per patient size (including targeted exams where dose is matched to indication, i.e. head), or iterative reconstruction technique. FINDINGS: No midline shift, mass effect, intracranial hemorrhage, hydrocephalus, or extra-axial fluid collection is evident. There is moderate atrophy and small vessel ischemic gliotic disease bilateral cerebral white matter. There is a 1.5 centimeter calcification along the anterior midline falx. This could represent physiologic calcification or a calcified meningioma without associated mass effect or cerebral edema. Atherosclerotic calcifications are seen in both intra cavernous internal carotid arteries. The calvarium has an unremarkable appearance. No mastoid effusion. No sinus air-fluid level. IMPRESSION: No acute intracranial finding Dictated by: Josesito Redmond 08/25/2019 14:23 Electronically signed by Josesito Redmond in [place] 08/25/2019 14:23 - ECG Data Tracing #1 EKG interpreted by Binh Quesada MD: Rhythm: sinus Rate: 82 [place]: normal Ectopy: none Conduction: normal ST Segment Changes: Nonspecific T Wave Changes: none Q Waves: none No evidence of acute ischemia or injury - Physician Consults Physician Consulted: Kayode Rice Time: 15:00 Reason -: Admission Comment/Response: Agrees to admit the patient to the hospital. We discussed the patient's clinical information, including history, exam, laboratory and radiology results and ED course. Per hospital procedure, I will write temporary bridge inpatient orders on the patient. Specific orders requested by the admitting physician: Continue antibiotics, oxygen, IV fluids Medical Decision Narrative: Patient was admitted 01/29/2018 for similar complaints. At that time Dr. Rice noted that he was on oxygen only at night, but was found to be hypoxic during the day during his admission and was advised to wear oxygen continuously. However, now patient and daughter state that he does not have to wear his oxygen continuously and does not. General Adult HPI - General Chief complaint: Altered Mental Status Stated complaint: Not eating;confusion Time Seen by Provider: 08/25/19 13:00 Mode of Arrival: Ambulatory Limitations: No Limitations Description of Symptoms (Recalled from ER Triage Doc. by RN): pt presents to ed with c/o confusion. pt states he feels "loopy." pt states he sarted topiramate on 08/02 and he is unsure if it has caused these symptoms. pt states he has been having trouble voiding and he has a productive cough. - History of Present Illness HPI narrative: 3-day history of feeling "loopy". States he is doing things that he should not be doing or has never done before. Staying up till 2:30 in the morning watching TV, he does not know why. No appetite, not eating, however states he is drinking plenty of fluids. Despite this, says he has decreased urination. Daughter says that couple of days ago he was disoriented, thought that it was 5:00 when it was 1030. She and the patient thinks that it might be due to Topamax which she was prescribed on 08/01/2019 for tremor. On his previous admission it was felt that his confusion was due to medication. - Related Data Home Medications Medication Instructions Recorded Confirmed Aspirin [Adult Low Dose Aspirin EC] 81 mg PO DAILY 01/29/18 08/20/19 Atorvastatin Calcium [Atorvastatin 40 mg PO HS 01/29/18 08/20/19 40mg Tab] Propranolol HCl [Propranolol HCl 80 mg PO DAILY 01/29/18 08/20/19 ER] Umeclidinium Brm/Vilanterol Tr 1 puff PO DAILY 01/29/18 08/20/19 [Anoro Ellipta 62.5-25 Mcg INH] vokxncms-jiw-clekd acid 300 1 tab PO DAILY 01/08/19 08/20/19 mcg-lycopene 600 mcg-lutein 300 mcg tablet cholecalciferol (vitamin D3) 125 5,000 unit PO QWEEK cap 04/15/19 08/20/19 mcg (5,000 unit) capsule primidone 50 mg tablet 350 mg PO DAILY 90 Days #630 tab 04/15/19 08/20/19 lisinopril 10 mg tablet 10 mg PO BID 07/16/19 08/20/19 topiramate 50 mg tablet 100 mg PO tab 08/20/19 08/20/19 Allergies Allergy/AdvReac Type Severity Reaction Status Date / Time No Known Allergies Allergy Verified 08/25/19 12:27 [facility] History - Hepatitis A Screen Drug use history?: No High risk sexual behaviors?: No History of sexually transmitted infection?: No Currently employed?: No Childcare worker?: No Do you have indoor plumbing?: Yes Do you have electricity?: Yes Attestation statement:: This patient has been screened for Hepatitis A risk factors. I have reviewed the patient's past medical history: Yes Medical History: Reports:: Cancer, Hyperlipidemia, Hypertension, Myocardial Infarction, Seizures Denies:: Diabetes Mellitus Type 1, Diabetes Mellitus Type 2, Internal Pacemaker, MRSA Other Medical History: Reports: Other Comment: Memory loss, JOYCE Laterality Cases: Left: Arthroscopy Knee, Bilateral: Other Other Surgeries: Yes: Cardiac Catheterization, Colonoscopy, Coronary Stent. No: Pacemaker Amputation: No Comment: hand - Social History Smoking Status: Current every day smoker Tobacco Type: e-cigarettes # Packs/Day (cigarettes): 1 Alcohol Intake: never Alcohol Intake Frequency:: other Substance Use Type: denies use Occupational Status: retired Housing: house Household Members: none Family Hx:: Cancer ROS Obtained: Yes All systems reviewed & no additional complaints - Constitutional Constitutional: Reports difficulty sleeping, Reports fever(s) (Low-grade, 99.7), Reports poor appetite - Cardiovascular Cardiovascular: Denies chest pain - Respiratory Respiratory: Yes cough, Yes other (Sneezing) - Gastrointestinal Gastrointestingal: Denies: abdominal pain, diarrhea, vomiting - Genitourinary Male Genitourinary: Reports other (Decreased urination) Physical Exam - General General appearance: alert, in no apparent distress - Head Head exam: atraumatic, normocephalic - Eye Eye exam: Present: normal appearance, PERRL, EOMI - ENT ENT exam: Present: mucous membranes moist - Neck Neck exam: Present: normal inspection, trachea midline - Chest Chest inspection: Present: normal inspection, symmetric chest wall rise - Respiratory Respiratory exam: Present: normal lung sounds bilaterally. Absent: respiratory distress - Cardiovascular Cardiovascular exam: Present: regular rate, normal rhythm, normal heart sounds - Abdominal Exam Abdominal exam: Present: soft, normal bowel sounds. Absent: distention, tenderness - Extremities Exam Extremities exam: Present: normal inspection - Neurological Exam Neurological exam: Present: alert, oriented X3, CN II-XII intact. Absent: motor sensory deficit - Psychiatric Psychiatric exam: Present: normal affect, normal mood - Skin Skin exam: Present: warm, dry
[2019-08-25 12:49] LABS: ABG Base Excess -6.9 mmol/L (-2.4-2.3); ABG HCO3 17.9 mmhg (22.0-26.0); ABG Oxygen Saturation 82 % (90-100); ABG PCO2 29.7 mmhg (35.0-45.0); ABG TCO2 18.8 mmhg (23-27)
[2019-08-25 12:50] LABS: Allen's Test ACCEPTABLE; Oxygen 21 %
[2019-08-25 12:53] LABS: ABG PO2 46.2 mmhg (80-100)
[2019-08-25 13:04] LABS: Basophils # 0.1 K/mm3 (0-0.2); Basophils % 0.7 % (0.1-2.0); Eosinophils % 0.1 % (0.1-12.0); Hematocrit 50.7 % (42.0-52.0); Hemoglobin 16.9 g/dL (14.1-18.0); Lymphocytes # 1.7 K/mm3 (0.7-4.5); Lymphocytes % 14.9 % (10-50); Mean Corpuscular HGB Conc 33.3 g/dL (31.8-35.4); Mean Corpuscular Volume 96.9 fl (80-94); Monocytes % 8.9 % (1.7-9.3); Neutrophils # 8.7 K/mm3 (1.8-7.8); Neutrophils % 75.4 % (37.0-80.0); Platelet Count 209 K/mm3 (142-424); Red Blood Count 5.23 M/mm3 (4.60-6.20); Red Cell Distribution Width 13.9 % (11.5-17.5); White Blood Count 11.6 K/mm3 (4.8-10.8)
[2019-08-25 13:31] LABS: Alanine Aminotransferase 36 U/L (21-72); Albumin Level 3.9 g/dL (3.4-5.0); Albumin/Globulin Ratio 0.9 (1.1-1.8); Alkaline Phosphatase 83 U/L (46-116); Aspartate Amino Transferase 44 U/L (15-37); Bilirubin,Total 1.2 mg/dL (0.2-1.0); Blood Urea Nitrogen 42 mg/dL (7-18); Calcium 8.8 mg/dL (8.5-10.1); Carbon Dioxide 21 mmol/L (21.0-32.0); Chloride 103 mmol/L (98-107); Globulin 4.5 gm/dl (1.3-3.2); Glucose 109 mg/dL (74-106); Sodium 141 mmol/L (137-145); Total Protein,Serum 8.4 g/dL (6.4-8.2)
[2019-08-25 13:34] LABS: Microscopic, Urine URINE MICROSCOPIC (MICROSCOPIC)
[2019-08-25 13:38] LABS: Appearance,Urine CLEAR (Clear); Blood, Urine 2+ (Negative); Color,Urine YELLOW (Yellow); Glucose,Urine (UA) Negative (Negative); Ketones,Urine 1+ (Negative); Leukocyte Esterase,Urine Negative (Negative); Protein,Urine 1+ (Negative); Specific Gravity, Urine >= 1.030 (1.005-1.030)
[2019-08-25 13:44] LABS: Bilirubin,Urine Negative (Negative)
[2019-08-25 13:48] LABS: Amorphous Sediment,Urine 1+ /lpf; Hyaline Casts,Urine Occasional #/lpf (0)
[2019-08-26 06:42] LABS: Lymphocytes # 0.9 K/mm3 (0.7-4.5); Red Cell Distribution Width 13.7 % (11.5-17.5)
[2019-08-26 06:58] LABS: Anion Gap 15.5 mEq/L (5-15); Calcium 8.1 mg/dL (8.5-10.1)
[2019-08-26 06:59] LABS: Basophils % 0.3 % (0.1-2.0); Hematocrit 41.5 % (42.0-52.0); Lymphocytes % 11.5 % (10-50); Mean Corpuscular HGB Conc 34.2 g/dL (31.8-35.4); Mean Corpuscular Volume 94.5 fl (80-94); Mean Platelet Volume 8.8 fl (7.4-10.4); Monocytes # 0.3 K/mm3 (0.1-1.0); Monocytes % 4.2 % (1.7-9.3); Neutrophils # 6.7 K/mm3 (1.8-7.8); Platelet Count 184 K/mm3 (142-424); Red Blood Count 4.39 M/mm3 (4.60-6.20); White Blood Count 7.9 K/mm3 (4.8-10.8)
[2019-08-26 07:25] LABS: Hemoglobin 14.2 g/dL (14.1-18.0)
--- NOTE | 2019-08-26 07:25 | Pharmacy Consult Notes ---
[facility] Pharmacy VTE Monitoring - Patient Demographics Admission date: 08/25/19 Report Date: 08/26/19 Time: 07:24 Allergies/Adverse Reactions: Patient Allergies No Known Allergies Allergy (Verified 08/25/19 12:27) Height: 1.73 m Weight: 58.088 kg Patient Problems: Current Active Problems Confusion (Acute) Community acquired pneumonia (Acute) Influenza B (Acute) Respiratory failure with hypoxia (Acute) Acute kidney injury (Acute) Dehydration (Acute) - VTE Risk Labs: VTE Related Lab Results Hgb 16.9 g/dL (14.1-18.0) 08/25/19 12:25 Hct 50.7 % (42.0-52.0) 08/25/19 12:25 Plt Count 209 K/mm3 (142-424) 08/25/19 12:25 BUN 31 mg/dL (7-18) H D 08/26/19 06:30 Creatinine 1.01 mg/dL (0.70-1.30) D 08/26/19 06:30 Estimated Creat Clear 47 mL/min (50-200) 08/26/19 06:30 VTE Score: 5 VTE Risk Level: Low Risk - Prophylaxis VTE Prophylaxis Ordered?: Yes Types of VTE Prophylaxis: TEDS Knee High Location of Applied Device: Bilateral Lower Extremeties
--- NOTE | 2019-08-26 07:45 | History & Physical Report ---
*Admission Date: 08/25/19 *Chief complaint: Confusion *History of present illness: 79-year-old male presented to the emergency department yesterday because of confusion. I have reviewed the ER note but took the majority of the history from the patient. Patient reports he came to the ER because he was not feeling quite right and was having episodes of confusion which he thought was due to topiramate which he had been prescribed for a tremor. Patient had been on the medicine for approximately 3 weeks and over the last several days had noticed not feeling himself and doing some odd things at home because of the confusion. He presented to the emergency department for evaluation. Ultimately he was steffi gnosed with left lung pneumonia and influenza B. This morning patient was trying to tell me how well he felt now and was hoping to go home when I reminded him of his diagnosis he did report that he had also been having increased cough with sputum production and worsening shortness of breath over the preceding 2 to 3 days as well. Patient wears oxygen at home and while he is supposed to also wear a CPAP machine at night he admits he has not been doing this in favor of just wearing supplemental oxygen. He does not recall having fevers or chills only that he had significant cough and shortness of breath. He reemphasizes however how much better he feels today. [facility] History I have reviewed the patient's past medical history: Yes Medical History: Reports:: Cancer, Hyperlipidemia, Hypertension, Myocardial Infarction, Seizures Denies:: Diabetes Mellitus Type 1, Diabetes Mellitus Type 2, Internal Pacemaker, MRSA *Have you ever received a pneumonia vaccine?: Yes *Have you received a flu vaccine this season?: Yes Other Medical History: Reports: Other Laterality Cases: Left: Arthroscopy Knee, Bilateral: Other Other Surgeries: Yes: Cardiac Catheterization, Colonoscopy, Coronary Stent. No: Pacemaker Amputation: No - *Social History Smoking Status: Current every day smoker Tobacco Type: e-cigarettes # Packs/Day (cigarettes): 1 Alcohol Intake: former Alcohol Intake Frequency:: 3 or more drinks per day Substance Use Type: denies use *Occupational Status:: retired Housing: house Household Members: none *Travel in the last 8 weeks: None Family Hx:: Cancer Review of Systems - Constitutional Denies body ache(s), Denies chills, Denies fever(s) - *Cardiovascular Denies chest pain - *Respiratory Reports chest congestion, Reports cough, Reports shortness of breath - *Gastrointestinal Denies abdominal pain - *Neurologic Reports tremor(s) Meds Home Medications Medication Instructions Recorded Confirmed Type Aspirin [Adult Low Dose Aspirin EC] 81 mg PO DAILY 01/29/18 08/25/19 History Propranolol HCl [Propranolol HCl 80 mg PO DAILY 01/29/18 08/25/19 History ER] [id number] acid 300 1 tab PO DAILY 01/08/19 08/25/19 History mcg-lycopene 600 mcg-lutein 300 mcg tablet cholecalciferol (vitamin D3) 125 5,000 unit PO QWEEK cap 04/15/19 08/25/19 History mcg (5,000 unit) capsule primidone 50 mg tablet 50 mg PO BID 90 Days #630 tab 04/15/19 08/25/19 History lisinopril 10 mg tablet 15 mg PO BID 07/16/19 08/25/19 History topiramate 50 mg tablet 100 mg PO DIRECTED tab 08/20/19 08/25/19 History Primidone 250 mg PO DAILY 08/25/19 08/25/19 History Allergies Allergy/AdvReac Type Severity Reaction Status Date / Time No Known Allergies Allergy Verified 08/25/19 12:27 Exam Vital signs and Labs for Last 24 Hours: Temp Pulse Resp BP Pulse Ox 98.0 F 90 18 133/76 93 L 08/26/19 04:00 08/26/19 06:07 08/26/19 04:00 08/26/19 04:00 08/26/19 06:07 Laboratory Results - last 24 hr 08/25/19 12:25: WBC 11.6 H, RBC 5.23, Hgb 16.9, Hct 50.7, MCV 96.9 H, MCH 32.3 H , MCHC 33.3, RDW 13.9, Plt Count 209, MPV 9.0, Neut % (Auto) 75.4, Lymph % (Auto) 14.9, Orange % (Auto) 8.9, Eos % (Auto) 0.1, Baso % (Auto) 0.7, Neut # (Auto) 8.7 H, Lymph # (Auto) 1.7, Orange # (Auto) 1.0, Eos # (Auto) 0.0, Baso # (Auto) 0.1 08/25/19 12:25: Sodium 141, Potassium 4.0, Chloride 103, Carbon Dioxide 21, Anion Gap 21.0 H, BUN 42 H, Creatinine 1.63 H, Estimated Creat Clear 27, Estimated GFR 41 L, Est GFR ( Amer) 49 L, Glucose 109 H, Calcium 8.8, Total Bilirubin 1.2 H, AST 44 H, ALT 36, Alkaline Phosphatase 83, Troponin I < 0.02, Total Protein 8.4 H D, Albumin 3.9, Globulin 4.5 H, Albumin/Globulin Ratio 0.9 L 08/25/19 12:25: Lactate 1.8 08/25/19 12:28: Specimen Source Right radial, O2 % 21, ABG pH 7.40, ABG pCO2 29 .7 L, ABG pO2 46.2 L, ABG HCO3 17.9 L, ABG Total CO2 18.8 L, ABG O2 Saturation 82 L*, ABG Base Excess -6.9 L, Braxton Test Acceptable 08/25/19 13:08: Influenza Type A Ag Negative, Influenza Type B Ag Positive A 08/25/19 13:26: Urine Color Yellow, Urine Appearance Clear, Urine pH 5.0, Ur Specific [place] >= 1.030, Urine Protein 1+, Urine Glucose (UA) Negative, Urine Ketones 1+, Urine Blood 2+, Urine Nitrate Negative, Urine Bilirubin Negative, Urine Urobilinogen 1.0, Ur Leukocyte Esterase Negative, Urine RBC 5-10, Urine WBC 3-5, Ur Squamous Epith Cells 3-5, Amorphous Sediment 1+, Urine Bacteria None, Hyaline Casts Occasional 08/26/19 06:30: Sodium 139, Potassium 4.5, Chloride 107, Carbon Dioxide 21, Anion Gap 15.5 H, BUN 31 H D, Creatinine 1.01 D, Estimated Creat Clear 47, Estimated GFR 71, Est GFR ( Amer) 86 D, Glucose 148 H D, Calcium 8.1 L 08/26/19 06:30: WBC 7.9 D, RBC 4.39 L, Hgb 14.2 D, Hct 41.5 L, MCV 94.5 H, MCH 32.3 H, MCHC 34.2, RDW 13.7, Plt Count 184, MPV 8.8, Neut % (Auto) 84.0 H, Lymph % (Auto) 11.5, Orange % (Auto) 4.2, Eos % (Auto) 0.0 L, Baso % (Auto) 0.3, Neut # (Auto) 6.7, Lymph # (Auto) 0.9, Orange # (Auto) 0.3, Eos # (Auto) 0.0, Baso # (Auto) 0.0 I & O for Last 24 hours: Intake & Output 08/23/19 08/24/19 08/25/19 08/26/19 11:59 11:59 11:59 11:59 Intake Total 1428 / 1428 Output Total 450 / 450 Balance 978 / 978 Weight 128 lb 1 oz Microbiology Reports for the Last 24 Hours: Microbiology 08/25/19 17:54 Sputum - Expectorated Sputum Gram Stain - Final Narrative: Patient is awake and alert sitting up in bed. He is oriented to person place and year. Supplemental oxygen is in place. He shows no signs of respiratory distress. He has a rhonchus cough. ENT exam reveals normal external ears, moist oropharynx. Pupils are reactive to light. Neck is without lymphadenopathy. Lung exam reveals severely distant breath sounds throughout all lung vasques. There are no rales or wheezing this morning. Heart has a regular rate and rhythm. Abdomen is thin and soft. Extremities are warm to the touch and there is no lower leg or pedal edema. Assessment and Plan (1) Community acquired pneumonia Current visit: Yes Status: Acute Qualifiers: Laterality: left Lung location: unspecified part of lung Qualified Code(s): J18.9 - Pneumonia, unspecified organism Category: Medical Code(s): J18.9 - Pneumonia, unspecified organism (2) Influenza B Current visit: Yes Status: Acute Category: Medical Code(s): J10.1 - Influenza due to other identified influenza virus with other respiratory manifestations (3) Acute on chronic respiratory failure with hypoxemia Current visit: No Status: Acute Category: Medical Code(s): J96.21 - Acute and chronic respiratory failure with hypoxia (4) Adverse reaction to drug Current visit: No Status: Acute Category: Medical Code(s): T50.905A - Adverse effect of unspecified drugs, medicaments and biological substances, initial encounter - Assessment and plan all Dx Assessment and Plan for all problems:: 1. Continue IV Rocephin and azithromycin for community-acquired pneumonia 2. Continue Tamiflu for influenza B 3. Continue IV steroids, reduce dose to 40 mg every 8 hours 4. For all intents and purposes patient seems to have returned to baseline regarding his mental status. He will be observed during the day. Carlson catheter will be removed. He will be allowed to get out of bed with assistance. I will also reach out to his family to see if they provide any additional history
--- NOTE | 2019-08-26 18:06 | Electrocardiograph Report ---
APPROVED REPORT Exam: Resting ECG HR:82 bpm ECG Measurements Heart Rate 82 AXES NE 140 P 77 QRSd 102 QRS 73 QT 390 T39 QTc 455 <Conclusion> Normal sinus rhythm ST abnormality, possible digitalis effect Abnormal ECG Electronically signed by : Donnie Jeffrey, 08/26/2019 18:06:18
--- NOTE | 2019-08-27 07:28 | Progress Note ---
Internal Medicine - PN: Subj *Date: 08/27/19 *Time: 07:26 Interval history: Patient has no complaints this morning and states he feels well. He was awakened by cough overnight. He denies any significant shortness of breath while at rest in bed. He is already finished his breakfast this morning. His ambulation has been minimal and he is using a bedside urinal. Exam Vital signs and Labs for Last 24 Hours: Temp Pulse Resp BP Pulse Ox 97.6 F 79 20 103/68 L 93 L 08/27/19 04:00 08/27/19 05:56 08/27/19 04:00 08/27/19 04:00 08/27/19 05:56 I & O for Last 24 hours: Intake & Output 08/24/19 08/25/19 08/26/19 08/27/19 11:59 11:59 11:59 11:59 Intake Total 1668 / 1668 680 / 680 Output Total 550 / 550 1 / 1 Balance 1118 / 1118 679 / 679 Weight 128 lb 1 oz 127 lb 13.89 oz Microbiology Reports for the Last 24 Hours: Microbiology 08/25/19 17:54 Sputum - Expectorated Sputum Gram Stain - Final 08/25/19 17:54 Sputum - Expectorated Sputum Sputum Culture - Preliminary Narrative: Patient is in no distress. Lungs are distant with faint rales in the left lower lung. Heart has a regular rate and rhythm. Extremities are without edema Assessment and Plan (1) Community acquired pneumonia Current visit: Yes Status: Acute Qualifiers: Laterality: left Lung location: unspecified part of lung Qualified Code(s): J18.9 - Pneumonia, unspecified organism Category: Medical Code(s): J18.9 - Pneumonia, unspecified organism (2) Influenza B Current visit: Yes Status: Acute Category: Medical Code(s): J10.1 - Influenza due to other identified influenza virus with other respiratory manifestations (3) Acute on chronic respiratory failure with hypoxemia Current visit: No Status: Acute Category: Medical Code(s): J96.21 - Acute and chronic respiratory failure with hypoxia (4) Adverse reaction to drug Current visit: No Status: Acute Category: Medical Code(s): T50.905A - Adverse effect of unspecified drugs, medicaments and biological substances, initial encounter - Assessment and plan all Dx Assessment and Plan for all problems:: Continue treatment for community-acquired pneumonia as well as Tamiflu. Patient's goals for today are to increase his ambulation to test his work capacity before returning home.
--- NOTE | 2019-08-28 07:42 | Discharge Summary ---
General - General Admission date:: 08/25/19 Discharge date: 08/28/19 HPI HPI: 79-year-old male presented to the emergency department yesterday because of confusion. I have reviewed the ER note but took the majority of the history from the patient. Patient reports he came to the ER because he was not feeling quite right and was having episodes of confusion which he thought was due to topiramate which he had been prescribed for a tremor. Patient had been on the medicine for approximately 3 weeks and over the last several days had noticed not feeling himself and doing some odd things at home because of the confusion. He presented to the emergency department for evaluation. Ultimately he was diagnosed with left lung pneumonia and influenza B. This morning patient was trying to tell me how well he felt now and was hoping to go home when I reminded him of his diagnosis he did report that he had also been having increased cough with sputum production and worsening shortness of breath over the preceding 2 to 3 days as well. Patient wears oxygen at home and while he is supposed to also wear a CPAP machine at night he admits he has not been doing this in favor of just wearing supplemental oxygen. He does not recall having fevers or chills only that he had significant cough and shortness of breath. He reemphasizes however how much better he feels today. Hospital Course Hospital Course: Patient's hypoxia was corrected with supplemental oxygen and he was placed on Rocephin and azithromycin to treat his left lower lobe pneumonia and Tamiflu for his influenza B. Patient was also placed on steroids for his COPD exacerbation. By the following morning patient's lungs had cleared significantly with only faint rales in the left lung base. Patient was continued on antibiotics, Tamiflu, aerosols, Solu-Medrol. After an additional 48 hours patient was doing quite well. He was ambulating with minimal dyspnea. He was requiring increased supplemental oxygen and will likely need a prolonged wean. Patient was ambulating. He was eating well. He will discharged home and follow-up in my office on August 30 at 830 Objective Vital signs: Temp Pulse Resp BP Pulse Ox 97.7 F 90 20 115/71 94 L 08/28/19 04:00 08/28/19 06:05 08/28/19 04:00 08/28/19 04:00 08/28/19 06:05 no acute distress - *Routine HEENT Exam Head: Present: normocephalic Eye: Present: EOMI ENT: Present: mucous membranes moist - *Routine Respiratory Exam Comments: Lung exam reveals distant breath sounds with fair aeration. Initial expiratory wheeze cleared with deep breathing and cough. No rales at the left base today - *Routine Cardiovascular Exam Present: RRR Results Labs on day of discharge: Preliminary micro results at discharge 08/25/19 12:58 Blood Culture - Preliminary Blood NO GROWTH AFTER 48 HOURS 08/25/19 12:25 Blood Culture - Preliminary Blood NO GROWTH AFTER 48 HOURS 08/25/19 17:54 Sputum Culture - Preliminary Sputum - Expectorated Sputum DS: Diagnosis - Discharge Diagnosis (1) Community acquired pneumonia Status: Acute (2) Influenza B Status: Acute (3) Acute on chronic respiratory failure with hypoxemia Status: Acute (4) Adverse reaction to drug Status: Acute Discharge Plan - Patient Discharge Instructions ACTIVITY: Continue current activity DIET: continue same diet Patient Instructions: Influenza, DI for Dehydration -- Adult, DI for Pneumonia -- Adult, DI for Respiratory Failure, DI for Acute Kidney Injury - Follow up Plan Follow up with: Juan Rice MD [Staff Physician] - 08/30/19 8:30 am Disposition: Home, Self-Custodial Medications: Home Medications Medication Instructions Recorded Confirmed Type Aspirin [Adult Low Dose Aspirin EC] 81 mg PO DAILY 01/29/18 08/25/19 History Propranolol HCl [Propranolol HCl 80 mg PO DAILY 01/29/18 08/25/19 History ER] [id number] acid 300 1 tab PO DAILY 01/08/19 08/25/19 History mcg-lycopene 600 mcg-lutein 300 mcg tablet primidone 50 mg tablet 100 mg PO DAILY 90 Days #630 tab 04/15/19 08/26/19 History lisinopril 10 mg tablet 15 mg PO BID 07/16/19 08/25/19 History Primidone 250 mg PO HS 08/25/19 08/26/19 History Ergocalciferol (Vitamin D2) 50,000 units PO WEEKLY 08/26/19 08/26/19 History [Vitamin D2] Umeclidinium Brm/Vilanterol Tr 1 puff INHALATION DAILY 08/26/19 08/26/19 History [Anoro Ellipta 62.5-25 Mcg INH] Azithromycin 250 mg PO DAILY #3 tab 08/28/19 Rx Cefdinir [Omnicef 300mg Capsule] 300 mg PO BID #10 cap 08/28/19 Rx Oseltamivir Phosphate [Tamiflu 75 mg PO BID #6 cap 08/28/19 Rx 75mg Capsule] predniSONE [Deltasone 20mg 20 mg PO DAILY #5 tab 08/28/19 Rx tablet] Prescriptions/Medication Reconciliation: New Cefdinir [Omnicef 300mg Capsule] 300 mg PO BID #10 cap Oseltamivir Phosphate [Tamiflu 75mg Capsule] 75 mg PO BID #6 cap Azithromycin 250 mg PO DAILY #3 tab predniSONE [Deltasone 20mg tablet] 20 mg PO DAILY #5 tab Continued primidone 50 mg tablet 100 mg PO DAILY 90 Days #630 tab lisinopril 10 mg tablet 15 mg PO BID [id number]-dkc-wzeor acid 300 mcg-lycopene 600 mcg-lutein 300 mcg tablet 1 tab PO DAILY Propranolol HCl [Propranolol HCl ER] 80 mg PO DAILY Aspirin [Adult Low Dose Aspirin EC] 81 mg PO DAILY Umeclidinium Brm/Vilanterol Tr [Anoro Ellipta 62.5-25 Mcg INH] 1 puff INHALATION DAILY Primidone 250 mg PO HS Ergocalciferol (Vitamin D2) [Vitamin D2] 50,000 units PO WEEKLY - Problem Reconciliation Problems Reviewed?: Yes
== END 2019-08-28 11:55 | disposition home or self-care (01) | DRG 193 ==
LOC: 2ND 12:02 → ER 12:02 → OBSVTOIN 15:55 → 2ND 15:56
PROVIDERS: ADMIT Internal Medicine Adolescent Medicine; ATTEND Family Medicine
CPT/HCPCS: 36415; 70450; 71010; 71045; 80048; 80053; 81001; 82803; 83605; 84484; 85025; 87040; 87070; 87077; 87186; 87205; 87275; 87276; 93005; 94640; 94760; 94761; 96365; 99285; J0456

== ENCOUNTER 2019-09-08 19:39 | Inpatient (IN) ==
[2019-09-08 20:14] LABS: ABG HCO3 18.4 mmhg (22.0-26.0); ABG Oxygen Saturation 61 % (90-100); ABG PCO2 24.9 mmhg (35.0-45.0); ABG PH 7.49 mmol/L (7.35-7.45); ABG PO2 29.7 mmhg (80-100); ABG TCO2 19.2 mmhg (23-27); Allen's Test Y; Oxygen R/A %
[2019-09-08 20:27] LABS: ABG Base Excess -4.8 mmol/L (-2.4-2.3); ABG HCO3 18.4 mmhg (22.0-26.0); ABG Oxygen Saturation 53 % (90-100); ABG PCO2 24.1 mmhg (35.0-45.0); ABG TCO2 19.1 mmhg (23-27); Allen's Test Y; Oxygen R/A %
--- NOTE | 2019-09-08 20:33 | Emergency Department Note ---
ED Disposition Clinical Impression: Acute exacerbation of chronic obstructive airways disease, Severe sepsis with acute organ dysfunction Disposition: Admitted as Observation Condition on Discharge: Good Referrals: Juan Rice MD [Primary Care Provider] - - Critical Care Critical Care Time: No Attestation: On 09/08/19, the high probability of a clinically significant, sudden or life threatening deterioration of the following system(s) required my full and direct attention, intervention and personal management. The time I documented below is in addition to time spent performing reported procedures but includes the following listed in this critical care notation. Medical Decision Making - Medical Records Medical records reviewed: Yes: I reviewed the patient's medical records. - Elias Inquiry Pt receiving controlled substance: No Vital Signs: 09/08/19 20:00 Temperature 98.8 F Temperature Source Oral Pulse Rate [Right Brachial] 104 H Respiratory Rate 16 Blood Pressure [Right Arm] 126/77 Blood Pressure Mean [Right Arm] 93 Blood Pressure Source [Right Arm] Automatic Cuff Blood Pressure Position [Right Arm] Sitting 02 Sat by Pulse Oximetry 89 L Oxygen Delivery Method Room Air - Lab Data Lab results reviewed: Yes: I reviewed the patient's lab results. Lab Results 09/08/19 20:12: Specimen Source R/r, O2 % R/a, ABG pH 7.49 H, ABG pCO2 24.9 L, ABG pO2 29.7 L, ABG HCO3 18.4 L, ABG Total CO2 19.2 L, ABG O2 Saturation 61 L*, ABG Base Excess -5.0 L, Braxton Test Y 09/08/19 20:25: Specimen Source R/r, O2 % R/a, ABG pH 7.50 H, ABG pCO2 24.1 L, ABG pO2 26.0 L, ABG HCO3 18.4 L, ABG Total CO2 19.1 L, ABG O2 Saturation 53 L*, ABG Base Excess -4.8 L, Braxton Test Y 09/08/19 21:13: WBC 12.6 H, RBC 4.90, Hgb 15.7, Hct 47.1, MCV 96.1 H, MCH 32.1 H , MCHC 33.4, RDW 14.3, Plt Count 262, MPV 8.3, Neut % (Auto) 79.4, Lymph % (Auto) 13.8, Randall % (Auto) 5.0, Eos % (Auto) 1.1, Baso % (Auto) 0.7, Neut # (Auto) 10.0 H, Lymph # (Auto) 1.7, Randall # (Auto) 0.6, Eos # (Auto) 0.1, Baso # (Auto) 0.1 09/08/19 21:13: Sodium 136, Potassium 4.6, Chloride 99, Carbon Dioxide 24, Anion Gap 17.6 H, BUN 38 H, Creatinine 1.10, Estimated Creat Clear 46, Estimated GFR 64, Est GFR ( Amer) 78, Glucose 101 H, Calcium 9.2, Total Bilirubin 1.1, AST 38, ALT 22, Alkaline Phosphatase 70, Troponin I 0.01, Total Protein 8.1, Albumin 4.2, Globulin 3.9 H, Albumin/Globulin Ratio 1.1 09/08/19 21:13: Lactate 2.1 09/08/19 21:13: NT-Pro-B Natriuret Pep 1340 H Result diagrams: 09/08/19 21:13 09/08/19 21:13 Orders (Tests/Meds): ED MEDICATIONS Discontinued Medications Generic Name Dose Route Start Last Admin Trade Name Freq PRN Reason Stop Dose Admin Ceftriaxone Sodium 1 gm/ 50 mls @ 100 mls/hr 09/08/19 21:30 09/08/19 21:31 Sodium Chloride IV 09/08/19 21:59 100 mls/hr ONCE ONE Administration Protocol Ioversol 70 ml 09/08/19 23:09 09/08/19 23:10 Rad-Optiray 350 100ml Vial IV 09/08/19 23:10 70 ml ONCE ONE Administration Protocol Sodium Chloride 40 ml 09/08/19 23:09 09/08/19 23:10 Rad-Ns 50ml Vial IV 09/08/19 23:10 40 ml ONCE ONE Administration Sodium Chloride 10 ml 09/08/19 23:09 09/08/19 23:10 Rad-Saline Flush 10ml Syringe IV 09/08/19 23:10 10 ml ONCE ONE Administration ORDERS Category Date Time Status CT Chest w/PE protocol [CT angio chest] Stat Cat Scan 09/08/19 21:56 Taken XR chest 2V Stat Exams 09/08/19 20:06 Taken Rapid Influenza A&B Antigens Stat Lab 09/08/19 20:22 Ordered Troponin I Q3H Lab 09/08/19 23:15 Ordered Troponin I Q3H Lab 09/09/19 02:15 Ordered Urinalysis and Microscopic Stat Lab 09/08/19 20:06 Ordered Blood Culture Stat Micro 09/08/19 21:17 Received Arterial Blood Gas Stat RT 09/08/19 20:45 Ordered - Radiology Data #1 Image(s): Chest Image Reviewed: Yes I reviewed the patient's radiology image Preliminary Findings: Abnormal (copd) - CT Data CT Scan: Chest Time Received: 23:[address] Reviewed: Yes: I have viewed the radiologist's interpretation Preliminary Findings: Abnormal (see report ) - ECG Data Tracing #1 Arrhythmias present: sinus tach Ischemic changes: non-specific ST-T wave changes Resp/SOB HPI - General Chief Complaint: Shortness of Breath/Dyspnea Stated Complaint: O2 low,weakness Time Seen by Provider: 09/08/19 20:32 Mode of Arrival: Ambulatory Source of Information: Patient, Medical Record Limitations: No Limitations Description of Symptoms (Recalled from ER Triage Doc. by RN): PATIENT REPORTS HE HAS BEEN SOB SINCE HE WOKE UP THIS MORNING AND GENERALIZED WEAKNESS. PATIENT REPORTS HE WAS JUST DISCARGED FROM THE HOPITAL ABOUT 2 WEEKS AGO WITH FLU AND PNEUMONIA. - History of Present Illness pt with family who reports progressive sob today with known hx of copd- he was recently admitted about 2 weeks ago - d/c summary reviewed - Complaint: shortness of breath Onset (ago): day(s) Context: recent illness Severity: moderate Consistency/Duration: constant Known history of: COPD Associated symptoms: denies other symptoms Treatment prior to arrival: none - Related Data Home oxygen amount: none Home Medications Medication Instructions Recorded Confirmed Aspirin [Adult Low Dose Aspirin EC] 81 mg PO DAILY 01/29/18 09/08/19 Propranolol HCl [Propranolol HCl 80 mg PO DAILY 01/29/18 09/08/19 ER] fklknwbp-tga-[id number] acid 300 1 tab PO DAILY 01/08/19 09/08/19 mcg-lycopene 600 mcg-lutein 300 mcg tablet primidone 50 mg tablet 100 mg PO DAILY 90 Days #630 tab 04/15/19 09/08/19 lisinopril 10 mg tablet 15 mg PO BID 07/16/19 09/08/19 Ergocalciferol (Vitamin D2) 50,000 units PO WEEKLY 08/26/19 09/08/19 [Vitamin D2] Umeclidinium Brm/Vilanterol Tr 1 puff INHALATION DAILY 08/26/19 09/08/19 [Anoro Ellipta 62.5-25 Mcg INH] Allergies Allergy/AdvReac Type Severity Reaction Status Date / Time No Known Allergies Allergy Verified 08/25/19 12:27 - Well's Criteria PE Score Clinical signs/symptoms of DVT: No PE is #1 diagnosis or equally likely: Yes Heart rate is > 100: Yes Immobile at least 3 days, or surgery in past 4 wks: Yes Previously, obj. diagnosed PE or DVT: No Hemoptysis: No Malignancy w/Rx within 6mo, or palliative: No PE Score: 5 [facility] History - Hepatitis A Screen Drug use history?: No High risk sexual behaviors?: No History of sexually transmitted infection?: No Currently employed?: No Childcare worker?: No Do you have indoor plumbing?: Yes Do you have electricity?: Yes Attestation statement:: This patient has been screened for Hepatitis A risk factors. I have reviewed the patient's past medical history: Yes Medical History: Reports:: Cancer, Hyperlipidemia, Hypertension, Myocardial Infarction, Seizures Denies:: Diabetes Mellitus Type 1, Diabetes Mellitus Type 2, Internal Pacemaker, MRSA Other Medical History: Reports: Other Comment: Memory loss, JOYCE Laterality Cases: Left: Arthroscopy Knee, Bilateral: Other Other Surgeries: Yes: Cardiac Catheterization, Colonoscopy, Coronary Stent. No: Pacemaker Amputation: No Comment: hand - Social History Smoking Status: Current every day smoker Tobacco Type: e-cigarettes # Packs/Day (cigarettes): 1 Alcohol Intake: former Alcohol Intake Frequency:: 3 or more drinks per day Substance Use Type: denies use Occupational Status: retired Housing: house Household Members: none Family Hx:: Cancer ROS Obtained: Yes All systems reviewed & no additional complaints - Constitutional Constitutional: Denies fever(s) - Eyes Eyes: Denies change in vision - ENT Ears, Nose, Mouth, and Throat: Denies sore throat - Cardiovascular Cardiovascular: Reports as per HPI, Denies chest pain, Reports dyspnea, Denies radiating jaw, neck or arm pain - Respiratory Respiratory: Yes cough, Yes dyspnea, No coughing up blood, No pain on inspiration - Gastrointestinal Gastrointestingal: Denies: vomiting - Genitourinary Male Genitourinary: Denies hematuria - Musculoskeletal Musculoskeletal: Reports joint pain, Denies joint swelling - Integumentary/Breasts Skin/Breast: Denies rash - Neurologic Neurologic: Denies convulsions, Denies focal weakness, Denies headache(s), Denies seizure-like activity Physical Exam - General General appearance: alert - Head Head exam: normocephalic - Eye Eye exam: Present: PERRL, EOMI - ENT ENT exam: Present: mucous membranes dry - Neck Neck exam: Present: trachea midline - Respiratory Respiratory exam: Present: other (dec bs bilat ). Absent: respiratory distress - Cardiovascular Cardiovascular exam: Present: regular rate, systolic murmur, +S4 - Abdominal Exam Abdominal exam: Present: soft - Extremities Exam Extremities exam: Absent: calf tenderness - Neurological Exam Neurological exam: Present: alert, CN II-XII intact, other (tremor bilat ) - Psychiatric Psychiatric exam: Present: normal affect - Skin Skin exam: Absent: rash
[2019-09-08 21:26] LABS: Basophils # 0.1 K/mm3 (0-0.2); Basophils % 0.7 % (0.1-2.0); Eosinophils # 0.1 K/mm3 (0.0-0.4); Eosinophils % 1.1 % (0.1-12.0); Hematocrit 47.1 % (42.0-52.0); Hemoglobin 15.7 g/dL (14.1-18.0); Lymphocytes # 1.7 K/mm3 (0.7-4.5); Lymphocytes % 13.8 % (10-50); Mean Corpuscular HGB Conc 33.4 g/dL (31.8-35.4); Mean Corpuscular Volume 96.1 fl (80-94); Mean Platelet Volume 8.3 fl (7.4-10.4); Monocytes # 0.6 K/mm3 (0.1-1.0); Neutrophils % 79.4 % (37.0-80.0); Platelet Count 262 K/mm3 (142-424); Red Cell Distribution Width 14.3 % (11.5-17.5); White Blood Count 12.6 K/mm3 (4.8-10.8)
[2019-09-08 21:40] LABS: Albumin Level 4.2 g/dl (3.5-5.0); Albumin/Globulin Ratio 1.1 (1.1-1.8); Anion Gap 17.6 mEq/L (5-15); Bilirubin,Total 1.1 mg/dl (0.2-1.3); Calcium 9.2 mg/dl (8.4-10.2); Globulin 3.9 g/dL (1.3-3.2); Total Protein,Serum 8.1 g/dl (6.3-8.2)
[2019-09-09 01:53] LABS: ABG Base Excess -3.1 mmol/L (-2.4-2.3); ABG HCO3 20.6 mmhg (22.0-26.0); ABG Oxygen Saturation 84 % (90-100); ABG PCO2 29.3 mmhg (35.0-45.0); ABG PH 7.47 mmol/L (7.35-7.45); ABG TCO2 21.5 mmhg (23-27); Allen's Test Y; Oxygen 50 %
[2019-09-09 01:54] LABS: ABG PO2 47.5 mmhg (80-100)
[2019-09-09 04:27] LABS: Basophils # 0.1 K/mm3 (0-0.2); Basophils % 0.5 % (0.1-2.0); Eosinophils % 0.2 % (0.1-12.0); Lymphocytes # 0.7 K/mm3 (0.7-4.5); Lymphocytes % 7.7 % (10-50); Mean Corpuscular HGB Conc 33.7 g/dL (31.8-35.4); Mean Corpuscular Volume 96.9 fl (80-94); Mean Platelet Volume 8.3 fl (7.4-10.4); Monocytes # 0.2 K/mm3 (0.1-1.0); Monocytes % 2.3 % (1.7-9.3); Neutrophils % 89.4 % (37.0-80.0); Platelet Count 240 K/mm3 (142-424); Red Blood Count 4.13 M/mm3 (4.60-6.20); Red Cell Distribution Width 14.3 % (11.5-17.5)
[2019-09-09 04:37] LABS: Chloride 102 mmol/L (98-107); Sodium 132 mmol/L (136-145)
[2019-09-09 04:40] LABS: Anion Gap 14.1 mEq/L (5-15); Blood Urea Nitrogen 33 mg/dl (9-20); Calcium 8.5 mg/dl (8.4-10.2); Carbon Dioxide 20 mmol/L (22.0-30.0)
[2019-09-09 04:41] LABS: Glucose 124 mg/dl (74-100)
[2019-09-09 04:57] LABS: Lymphocytes % 5 % (10-50); Neutrophils % 93 % (42-76); RBC Morphology Normal; Total Cells Counted 100
[2019-09-09 05:05] LABS: Hemoglobin 13.5 g/dL (14.1-18.0)
--- NOTE | 2019-09-09 07:33 | Pharmacy Consult Notes ---
[facility] Pharmacy VTE Monitoring - Patient Demographics Admission date: 09/09/19 Report Date: 09/09/19 Time: 07:33 Allergies/Adverse Reactions: Patient Allergies No Known Allergies Allergy (Verified 08/25/19 12:27) Height: 1.73 m Weight: 55.338 kg Patient Problems: Current Active Problems Acute exacerbation of chronic obstructive airways disease (Acute) Severe sepsis with acute organ dysfunction (Acute) - VTE Risk Labs: VTE Related Lab Results Hgb 13.5 g/dL (14.1-18.0) L D 09/09/19 04:00 Hct 40.0 % (42.0-52.0) L 09/09/19 04:00 Plt Count 240 K/mm3 (142-424) 09/09/19 04:00 BUN 33 mg/dl (9-20) H 09/09/19 04:00 Creatinine 0.90 mg/dl (0.66-1.25) 09/09/19 04:00 Estimated Creat Clear 45 mL/min (50-200) 09/09/19 04:00 VTE Score: 10 VTE Risk Level: Moderate Risk - Prophylaxis VTE Prophylaxis Ordered?: Yes Types of VTE Prophylaxis: TEDS Knee High Location of Applied Device: Bilateral Lower Extremeties
--- NOTE | 2019-09-09 07:56 | History & Physical Report ---
*Admission Date: 09/09/19 *Chief complaint: Shortness of breath *History of present illness: The 1-year-old male with severe COPD, obstructive sleep apnea, and recent hospitalization at [facility] for pneumonia and influenza return to the hospital because of shortness of breath and general malaise. Repeat work-up in the emergency department showed findings of pneumonitis on CT scan with questionable pneumonia. Patient's blood gas revealed severe hypoxemia. Patient uses CPAP at home with a supplemental oxygen attachment but does not have portable oxygen or a home oxygen concentrator for use during the day. He denies fevers or chills. Patient was placed on Vapotherm to correct his hypoxemia and repeat blood gas did show some improvement in arterial oxygenation. This morning patient states he is feeling better [facility] History I have reviewed the patient's past medical history: Yes Medical History: Reports:: Congestive Heart Failure, Hyperlipidemia, Hypertension, Myocardial Infarction, Seizures Denies:: Cancer, Diabetes Mellitus Type 1, Diabetes Mellitus Type 2, Internal Pacemaker, MRSA *Have you ever received a pneumonia vaccine?: No *Have you received a flu vaccine this season?: No Other Medical History: Reports: Other Laterality Cases: Left: Arthroscopy Knee, Bilateral: Other Other Surgeries: Yes: Cardiac Catheterization, Cardiac Surgery, Colonoscopy, Coronary Stent. No: Pacemaker Amputation: No - *Social History Smoking Status: Current every day smoker Tobacco Type: cigarettes, e-cigarettes # Packs/Day (cigarettes): 2 Alcohol Intake: former Alcohol Intake Frequency:: 3 or more drinks per day Substance Use Type: denies use *Occupational Status:: retired Housing: house Household Members: spouse *Travel in the last 8 weeks: None Family Hx:: Cancer Review of Systems - Constitutional Denies anorexia, Denies body ache(s), Denies chills, Denies fever(s) - *Cardiovascular Denies chest pain - *Respiratory Reports shortness of breath - *Neurologic Denies seizure-like activity, Denies localized weakness, Denies headache(s), Denies seizure-like activity Meds Home Medications Medication Instructions Recorded Confirmed Type Aspirin [Adult Low Dose Aspirin EC] 81 mg PO DAILY 01/29/18 09/08/19 History Propranolol HCl [Propranolol HCl 80 mg PO DAILY 01/29/18 09/08/19 History ER] kbutpnqg-vjc-ehghp acid 300 1 tab PO DAILY 01/08/19 09/08/19 History mcg-lycopene 600 mcg-lutein 300 mcg tablet primidone 50 mg tablet 100 mg PO DAILY 90 Days #630 tab 04/15/19 09/08/19 History lisinopril 10 mg tablet 15 mg PO BID 07/16/19 09/08/19 History Ergocalciferol (Vitamin D2) 50,000 units PO WEEKLY 08/26/19 09/08/19 History [Vitamin D2] Umeclidinium Brm/Vilanterol Tr 1 puff INHALATION DAILY 08/26/19 09/08/19 History [Anoro Ellipta 62.5-25 Mcg INH] Primidone 250 mg PO HS 09/09/19 09/09/19 History Allergies Allergy/AdvReac Type Severity Reaction Status Date / Time No Known Allergies Allergy Verified 08/25/19 12:27 Exam Vital signs and Labs for Last 24 Hours: Temp Pulse Resp BP Pulse Ox 97.8 F 79 20 125/72 91 L 09/09/19 04:00 09/09/19 06:16 09/09/19 04:00 09/09/19 04:00 09/09/19 06:16 Laboratory Results - last 24 hr 09/08/19 20:12: Specimen Source R/r, O2 % R/a, ABG pH 7.49 H, ABG pCO2 24.9 L, ABG pO2 29.7 L, ABG HCO3 18.4 L, ABG Total CO2 19.2 L, ABG O2 Saturation 61 L*, ABG Base Excess -5.0 L, Braxton Test Y 09/08/19 20:25: Specimen Source R/r, O2 % R/a, ABG pH 7.50 H, ABG pCO2 24.1 L, ABG pO2 26.0 L, ABG HCO3 18.4 L, ABG Total CO2 19.1 L, ABG O2 Saturation 53 L*, ABG Base Excess -4.8 L, Braxton Test Y 09/08/19 21:13: WBC 12.6 H, RBC 4.90, Hgb 15.7, Hct 47.1, MCV 96.1 H, MCH 32.1 H , MCHC 33.4, RDW 14.3, Plt Count 262, MPV 8.3, Neut % (Auto) 79.4, Lymph % (Auto) 13.8, Jack % (Auto) 5.0, Eos % (Auto) 1.1, Baso % (Auto) 0.7, Neut # (Auto) 10.0 H, Lymph # (Auto) 1.7, Jack # (Auto) 0.6, Eos # (Auto) 0.1, Baso # (Auto) 0.1 09/08/19 21:13: Sodium 136, Potassium 4.6, Chloride 99, Carbon Dioxide 24, Anion Gap 17.6 H, BUN 38 H, Creatinine 1.10, Estimated Creat Clear 46, Estimated GFR 64, Est GFR ( Amer) 78, Glucose 101 H, Calcium 9.2, Total Bilirubin 1.1, AST 38, ALT 22, Alkaline Phosphatase 70, Troponin I 0.01, Total Protein 8.1, Albumin 4.2, Globulin 3.9 H, Albumin/Globulin Ratio 1.1 09/08/19 21:13: Lactate 2.1 09/08/19 21:13: NT-Pro-B Natriuret Pep 1340 H 09/09/19 00:01: Troponin I 0.01 09/09/19 00:01: Lactate 0.9 09/09/19 01:51: Specimen Source L/r, O2 % 50, ABG pH 7.47 H, ABG pCO2 29.3 L, ABG pO2 47.5 L, ABG HCO3 20.6 L, ABG Total CO2 21.5 L, ABG O2 Saturation 84 L*, ABG Base Excess -3.1 L, Braxton Test Y 09/09/19 04:00: WBC 9.0 D, RBC 4.13 L, Hgb 13.5 L D, Hct 40.0 L, MCV 96.9 H, MCH 32.6 H, MCHC 33.7, RDW 14.3, Plt Count 240, MPV 8.3, Neut % (Auto) 89.4 H, Lymph % (Auto) 7.7 L, Jack % (Auto) 2.3, Eos % (Auto) 0.2, Baso % (Auto) 0.5, Neut # (Auto) 8.0 H, Lymph # (Auto) 0.7, Jack # (Auto) 0.2, Eos # (Auto) 0.0, Baso # (Auto) 0.1, Total Counted 100, Neutrophils % (Manual) 93 H, Band Neutrophils % 2.0, Lymphocytes % (Manual) 5 L, Platelet Estimate Normal, RBC Morphology Normal 09/09/19 04:00: Sodium 132 L, Potassium 4.1, Chloride 102, Carbon Dioxide 20 L, Anion Gap 14.1, BUN 33 H, Creatinine 0.90, Estimated Creat Clear 45, Estimated GFR 81, Est GFR ( Amer) 98 D, Glucose 124 H D, Calcium 8.5, Magnesium 2.3, Troponin I < 0.01 I & O for Last 24 hours: Intake & Output 09/06/19 09/07/19 09/08/19 09/09/19 11:59 11:59 11:59 11:59 Intake Total 222 / 222 Balance 222 / 222 Weight 122 lb - *Routine HEENT Exam Head: Present: normocephalic Eye: Present: EOMI, PERRL ENT: Present: mucous membranes moist - *Routine Neck Exam Present: supple. Absent: lymphadenopathy - *Routine Respiratory Exam Comments: Breath sounds are distant throughout with rales at the left posterior base. Aeration is fair. There is no wheezing - *Routine Cardiovascular Exam Present: RRR - *Routine Abdominal Exam Present: soft, normoactive bowel sounds. Absent: tenderness - *Routine Extremities Exam Absent: cyanosis, clubbing, edema - *Routine Skin Exam Present: warm. Absent: rash - *Routine Neurological Exam Present: alert, oriented X3 Assessment and Plan (1) Pneumonitis Current visit: Yes Status: Acute Category: Medical Code(s): J18.9 - Pneumonia, unspecified organism (2) Acute exacerbation of chronic obstructive airways disease Current visit: Yes Status: Acute Category: Medical Code(s): J44.1 - Chronic obstructive pulmonary disease with (acute) exacerbation - Assessment and plan all Dx Assessment and Plan for all problems:: I have reordered home medicines. Continue steroids and antibiotics along with oxygen support via Vapotherm although we will attempt to wean this to nasal cannula. Echocardiogram is been ordered this morning
--- NOTE | 2019-09-09 11:51 | Electrocardiograph Report ---
APPROVED REPORT Exam: Resting ECG HR:94 bpm ECG Measurements Heart Rate 94 AXES NE 160 P 72 QRSd 104 QRS 79 QT 374 T57 QTc 467 <Conclusion> Normal sinus rhythm Normal ECG Electronically signed by : Donnie Jeffrey, 09/09/2019 11:51:07
--- NOTE | 2019-09-09 21:35 | Cardiology Report ---
APPROVED REPORT EXAM: Comprehensive 2D, Doppler, and color-flow Echocardiogram Co Founder And Ceo: Irene Chen CRT Ht: 5 ft 7 in Wt: 135lbs BSA: 1.71 BP: 110/78 mmHg Indications: COPD, Shortness of Breath, Hyperlipidemia, Hypertension/HDD, sepsis, Ca, old [place], JOYCE, stent, smoker, home o2. 2D Dimensions LVOT 1.73 cm (M/F) 1.5-2.5 M-Mode Dimensions RVDd 2.36 cm (0.9-2.6)LVDd 4.41 cm (3.5-5.7) LVDs 2.70 cm (3.5-5.7)IVSd 1.50 cm (0.6-1.1) PWd 0.86 cm (0.6-1.1)EF (Teich) 69.40% FS 38.80% EDV (Teich) 88.20 mL ESV (Teich) 27.00 mL LV Diastology E/A Ratio 0.74 Mitral Valve MV A Velocity 50.00 (40-130 cm/s) Left Ventricle Left atrium is mildly enlarged, left ventricle is normal size, mild concentric left ventricular hypertrophy, visually estimated ejection fraction 45%, there is moderate hypokinesis involving the inferior and inferior basal wall. Endocardial surfaces are very poorly visualized, diastolic parameters are inconclusive. Right Ventricle Right atrium and right ventricle moderately enlarged with normal contractility. Aortic Valve Aortic valve is thickened and calcified leaflet continue to display good mobility, there is no aortic stenosis or aortic insufficiency. Mitral Valve Mitral valve is grossly normal, there is mild mitral regurgitation. Tricuspid Valve Tricuspid valve is grossly normal, there is moderate tricuspid regurgitation, calculated right ventricular systolic pressure is 54 mmHg. Pulmonic Valve Pulmonic valve is poorly visualized. Great Vessels Aortic root is normal size. Pericardium No significant pericardial effusion noted. Conclusion 1. Biatrial enlargement, normal left ventricular size, mild concentric left ventricular hypertrophy, visually estimated ejection fraction 45% with segmental wall motion abnormality described above, diastolic parameters are inconclusive. Endocardial surfaces are very poorly visualized. 2. Moderately enlarged right ventricle with normal contractility. 3. Thickened and calcified aortic valve without Doppler evidence of aortic stenosis or aortic insufficiency. 4. Mild mitral and moderate tricuspid regurgitation, calculated right ventricular systolic pressure is 54 mmHg. 5. No significant pericardial effusion noted. Electronically signed by : Guillermo Skelton, 09/09/2019 21:34:32
--- NOTE | 2019-09-10 07:28 | Progress Note ---
Internal Medicine - PN: Subj *Date: 09/10/19 *Time: 07:26 Interval history: Patient has no complaints this morning other than his night was rough because his IV had to be changed. He remains on Vapotherm. Yesterday afternoon and evening sats did decrease at times to the 70s and 80s although patient remained comfortable during these times. Exam Vital signs and Labs for Last 24 Hours: Temp Pulse Resp BP Pulse Ox 97.7 F 56 L 16 108/55 L 88 L 09/10/19 04:47 09/10/19 05:48 09/10/19 04:47 09/10/19 04:47 09/10/19 04:47 I & O for Last 24 hours: Intake & Output 09/07/19 09/08/19 09/09/19 09/10/19 11:59 11:59 11:59 11:59 Intake Total 462 / 462 1216 / 1216 Output Total 625 / 625 Balance 462 / 462 591 / 591 Weight 122 lb 121 lb 4.068 oz Microbiology Reports for the Last 24 Hours: Microbiology 09/09/19 08:55 Sputum - Expectorated Sputum Gram Stain - Final 09/09/19 08:55 Sputum - Expectorated Sputum Sputum Culture - Final Narrative: He is in no distress. Lungs are distant but clear without rales, rhonchi, wheezes. Heart has regular rate and rhythm. Extremities have no edema Assessment and Plan (1) Pneumonitis Current visit: Yes Status: Acute Category: Medical Code(s): J18.9 - Pneumonia, unspecified organism (2) Acute exacerbation of chronic obstructive airways disease Current visit: Yes Status: Acute Category: Medical Code(s): J44.1 - Chronic obstructive pulmonary disease with (acute) exacerbation - Assessment and plan all Dx Assessment and Plan for all problems:: Continue current care. Continue attempts to wean Vapotherm. Anticipate hospit alization lasting most of the week as he is weaned from Vapotherm.
--- NOTE | 2019-09-11 07:13 | Progress Note ---
Internal Medicine - PN: Subj *Date: 09/11/19 *Time: 07:12 Interval history: Patient has no complaints this morning. O2 sats have been better overnight except for when the patient removed his Vapotherm in which point they dropped into the 70s. He was confused upon awakening and was easily reoriented. He recalls this event overnight. He denies significant shortness of breath this morning. He denies chest pain. He does find the Vapotherm cumbersome Exam Vital signs and Labs for Last 24 Hours: Temp Pulse Resp BP Pulse Ox 97.6 F 76 20 121/71 98 09/11/19 03:42 09/11/19 06:01 09/11/19 03:42 09/11/19 03:42 09/11/19 06:01 I & O for Last 24 hours: Intake & Output 09/08/19 09/09/19 09/10/19 09/11/19 11:59 11:59 11:59 11:59 Intake Total 462 / 462 1456 / 1456 480 / 480 Output Total 950 / 950 1075 / 1075 Balance 462 / 462 506 / 506 -595 / -595 Weight 122 lb 121 lb 4.068 oz 131 lb 7 oz Microbiology Reports for the Last 24 Hours: Microbiology 09/08/19 21:17 Blood Blood Culture - Preliminary NO GROWTH AFTER 48 HOURS 09/08/19 21:17 Blood Blood Culture - Preliminary NO GROWTH AFTER 48 HOURS Narrative: Patient does not appear to be in any distress. Lungs have fair aeration. Rhonchi at the left lung base that clear with cough and deep breathing. Heart has a regular rate and rhythm. Assessment and Plan (1) Pneumonitis Current visit: Yes Status: Acute Category: Medical Code(s): J18.9 - Pneumonia, unspecified organism (2) Acute exacerbation of chronic obstructive airways disease Current visit: Yes Status: Acute Category: Medical Code(s): J44.1 - Chronic obstructive pulmonary disease with (acute) exacerbation - Assessment and plan all Dx Assessment and Plan for all problems:: Continue to wean Vapotherm as tolerated with goal O2 sats to be greater than 90%. Anticipate transition to nasal cannula which she will need for an extended period of time
--- NOTE | 2019-09-12 07:26 | Progress Note ---
Internal Medicine - PN: Subj *Date: 09/12/19 *Time: 07:24 Interval history: Patient has no complaints this morning. Nursing staff reports overnight he had some brief episodes of confusion but was easily reoriented. Patient is frustrated by his dependence on the Vapotherm. Exam Vital signs and Labs for Last 24 Hours: Temp Pulse Resp BP Pulse Ox 97.8 F 79 16 133/80 94 L 09/12/19 03:51 09/12/19 05:45 09/12/19 03:51 09/12/19 03:51 09/12/19 05:45 I & O for Last 24 hours: Intake & Output 09/09/19 09/10/19 09/11/19 09/12/19 11:59 11:59 11:59 11:59 Intake Total 462 / 462 1456 / 1456 720 / 720 1080 / 1080 Output Total 950 / 950 1075 / 1075 1750 / 1750 Balance 462 / 462 506 / 506 -355 / -355 -670 / -670 Weight 122 lb 121 lb 4.068 oz 131 lb 7 oz 131 lb 2 oz Narrative: He looks well. Vapotherm is in place. He shows no signs of respiratory distress. Lung have fair aeration. The left posterior lateral lung base has faint rales. Heart has a regular rate and rhythm. Abdomen is thin and soft. Extremities are without edema. Assessment and Plan (1) Pneumonitis Current visit: Yes Status: Acute Category: Medical Code(s): J18.9 - Pneumonia, unspecified organism (2) Acute exacerbation of chronic obstructive airways disease Current visit: Yes Status: Acute Category: Medical Code(s): J44.1 - Chronic obstructive pulmonary disease with (acute) exacerbation - Assessment and plan all Dx Assessment and Plan for all problems:: 1. Continue weaning from Vapotherm to transition to nasal cannula with goal to keep O2 sats at or above 90%
--- NOTE | 2019-09-12 09:52 | Progress Note ---
Internal Medicine - PN: Subj *Date: 09/12/19 *Time: 09:51 Exam Vital signs and Labs for Last 24 Hours: Temp Pulse Resp BP Pulse Ox 98.0 F 84 22 121/67 95 09/12/19 08:00 09/12/19 08:00 09/12/19 08:00 09/12/19 08:00 09/12/19 08:00 I & O for Last 24 hours: Intake & Output 09/09/19 09/10/19 09/11/19 09/12/19 23:59 23:59 23:59 23:59 Intake Total 1062 / 1678 1336 / 1336 1320 / 1320 480 / 480 Output Total 625 / 625 975 / 975 2024 / 2024 150 / 150 Balance 437 / 1053 361 / 361 -705 / -705 330 / 330 Weight 55 kg 59.619 kg 59.477 kg Assessment and Plan (1) Pneumonitis Current visit: Yes Status: Acute Category: Medical Code(s): J18.9 - Pneumonia, unspecified organism (2) Acute exacerbation of chronic obstructive airways disease Current visit: Yes Status: Acute Category: Medical Code(s): J44.1 - Chronic obstructive pulmonary disease with (acute) exacerbation The patient's infection will respond to the chosen ABx?: Yes Is the patient receiving the right drug, dose, and route?: Yes Could a more targeted ABx be ordered?: No (CX PENDING AT THE TIME OF DOCUMENTATION)
--- NOTE | 2019-09-13 07:41 | Progress Note ---
Internal Medicine - PN: Subj *Date: 09/13/19 *Time: 07:39 Interval history: Patient has no complaints this morning and denies shortness of breath. He was found walking the hallways in the middle of the night with O2 sats in the 70s and 80s. Patient recalls walking in the hallway. He does not have a good explanation for why he was out of his room. Exam Vital signs and Labs for Last 24 Hours: Temp Pulse Resp BP Pulse Ox 97.6 F 78 20 137/68 83 L 09/12/19 20:00 09/13/19 06:19 09/12/19 20:00 09/12/19 20:00 09/13/19 06:19 I & O for Last 24 hours: Intake & Output 09/10/19 09/11/19 09/12/19 09/13/19 11:59 11:59 11:59 11:59 Intake Total 1456 / 1456 720 / 720 1560 / 1560 840 / 840 Output Total 950 / 950 1075 / 1075 2150 / 2150 1025 / 1025 Balance 506 / 506 -355 / -355 -590 / -590 -185 / -185 Weight 121 lb 4.068 oz 131 lb 7 oz 131 lb 2 oz 133 lb 8 oz Narrative: Patient is in no distress. Resting comfortably with Vapotherm in place. Lung exam reveals distant but clear breath sounds today. Heart has a regular rate and rhythm. Assessment and Plan (1) Pneumonitis Current visit: Yes Status: Acute Category: Medical Code(s): J18.9 - Pneumonia, unspecified organism (2) Acute exacerbation of chronic obstructive airways disease Current visit: Yes Status: Acute Category: Medical Code(s): J44.1 - Chronic obstructive pulmonary disease with (acute) exacerbation - Assessment and plan all Dx Assessment and Plan for all problems:: We will attempt to transition the patient to nasal cannula at 4 L/min as when he was hospitalized previously with influenza and pneumonia he tolerated supplemental oxygen via the nasal cannula rather well. If this form of oxygen does not keep O2 sats above 88% patient be placed back on Vapotherm
--- NOTE | 2019-09-14 07:39 | Progress Note ---
Internal Medicine - PN: Subj *Date: 09/14/19 *Time: 07:36 Interval history: Patient has done well with the transition to nasal cannula. O2 sats have been in the high 80s to mid 90s when using 2 to 4 L/min of oxygen via the NC. He denies any change in sensation of shortness of breath. He claims to feel better simply because he has more freedom of movement with the simple nasal cannula. Exam Vital signs and Labs for Last 24 Hours: Temp Pulse Resp BP Pulse Ox 97.3 F L 73 16 126/77 88 L 09/14/19 03:41 09/14/19 05:55 09/14/19 03:41 09/14/19 03:41 09/14/19 03:49 I & O for Last 24 hours: Intake & Output 09/11/19 09/12/19 09/13/19 09/14/19 11:59 11:59 11:59 11:59 Intake Total 720 / 720 1560 / 1560 1080 / 1080 870 / 870 Output Total 1075 / 1075 2150 / 2150 1725 / 1725 300 / 300 Balance -355 / -355 -590 / -590 -645 / -645 570 / 570 Weight 131 lb 7 oz 131 lb 2 oz 133 lb 8 oz 131 lb 1 oz Microbiology Reports for the Last 24 Hours: Microbiology 09/08/19 21:17 Blood Blood Culture - Final NO GROWTH AFTER 5 DAYS 09/08/19 21:17 Blood Blood Culture - Final NO GROWTH AFTER 5 DAYS Narrative: Patient is sitting up in the chair and eating breakfast. He does not appear ill nor short of breath. Lung exam reveals distant breath sounds throughout with fair aeration but no rales or rhonchi this morning. Heart has a regular rate and rhythm. Assessment and Plan (1) Acute exacerbation of chronic obstructive airways disease Current visit: Yes Status: Acute Category: Medical Code(s): J44.1 - Chronic obstructive pulmonary disease with (acute) exacerbation Patient has done well with transition to nasal cannula. Home oxygen will be arranged. Plan will be to discharge patient home this afternoon as long as he continues to maintain appropriate O2 sats without any physical change (2) Pneumonitis Current visit: Yes Status: Acute Category: Medical Code(s): J18.9 - Pneumonia, unspecified organism Patient has been on antibiotics most of the week. Chest x-ray and CT scan on admission I believe is more consistent with a pneumonitis than a bacterial pneumonia. Patient never had symptoms of infection. (3) Acute on chronic respiratory failure with hypoxemia Current visit: Yes Status: Resolved Category: Medical Code(s): J96.21 - Acute and chronic respiratory failure with hypoxia Acute respiratory failure has resolved. Patient will be discharged home with supplemental oxygen to be worn 24 hours a day
--- NOTE | 2019-09-14 07:42 | Discharge Summary ---
General - General Admission date:: 09/09/19 Discharge date: 09/14/19 HPI HPI: The 1-year-old male with severe COPD, obstructive sleep apnea, and recent hospitalization at [facility] for pneumonia and influenza return to the hospital because of shortness of breath and general malaise. Repeat work-up in the emergency department showed findings of pneumonitis on CT scan with questionable pneumonia. Patient's blood gas revealed severe hypoxemia. Patient uses CPAP at home with a supplemental oxygen attachment but does not have portable oxygen or a home oxygen concentrator for use during the day. He denies fevers or chills. Patient was placed on Vapotherm to correct his hypoxemia and repeat blood gas did show some improvement in arterial oxygenation. This morning patient states he is feeling better Hospital Course Hospital Course: Patient was admitted and placed on Vapotherm to provide appropriate amount of oxygen so that patient can maintain O2 sats in the high 80s to low 90s. Patient was very slowly weaned from the Vapotherm due to his severe hypoxemia detected on admission. He was also maintained on broad-spectrum antibiotics as well as steroids to treat both COPD exacerbation and suspected pneumonia. Patient had recently been hospitalized with influenza B and pneumonia. Patient improved slowly and hospitalization was affected by his slow wean from Vapotherm. Ultimately on September 12 patient was transitioned to a nasal cannula at 4 L/min which maintained O2 sats in the high 80s to mid 90s. He was successfully stable on this for over 24 hours. Once patient had proven stability on supplemental oxygen that was manageable at home he was discharged home. Patient will continue to wear his supplemental oxygen. Patient be contacted via phone for phone follow-up due to ongoing potential outbreak of respiratory viruses locally. On the day of discharge patient's O2 sats would still drop to 87% with oxygen in place. Patient was 88% on room air the morning of discharge. He will need home oxygen concentrator as well as portable oxygen with oxygen conserving device. Objective Vital signs: Temp Pulse Resp BP Pulse Ox 97.3 F L 73 16 126/77 88 L 09/14/19 03:41 09/14/19 05:55 09/14/19 03:41 09/14/19 03:41 09/14/19 03:49 DS: Diagnosis - Discharge Diagnosis (1) Acute exacerbation of chronic obstructive airways disease Status: Acute (2) Pneumonitis Status: Acute (3) Acute on chronic respiratory failure with hypoxemia Status: Resolved Discharge Plan - Patient Discharge Instructions ACTIVITY: Continue current activity DIET: continue same diet Patient Instructions: Chronic Obstructive Pulmonary Disease, Sepsis, DI for Chronic Obstructive Pulmonary Disease, DI for Sepsis -- Adult - Follow up Plan Follow up with: Juan Rice MD [Primary Care Provider] - Disposition: Home, Self-Half-Way Medications: Home Medications Medication Instructions Recorded Confirmed Type Aspirin [Adult Low Dose Aspirin EC] 81 mg PO DAILY 01/29/18 09/09/19 History Propranolol HCl [Propranolol HCl 80 mg PO DAILY 01/29/18 09/09/19 History ER] pqiipzhj-ijt-yqdeq acid 300 1 tab PO DAILY 01/08/19 09/09/19 History mcg-lycopene 600 mcg-lutein 300 mcg tablet primidone 50 mg tablet 100 mg PO DAILY 90 Days #630 tab 04/15/19 09/09/19 History lisinopril 10 mg tablet 15 mg PO BID 07/16/19 09/09/19 History Ergocalciferol (Vitamin D2) 50,000 units PO WEEKLY 08/26/19 09/09/19 History [Vitamin D2] Primidone 250 mg PO HS 09/09/19 09/09/19 History predniSONE [Deltasone 10mg tablet] 10 mg PO DAILY 5 Days #5 tab 09/14/19 Rx Prescriptions/Medication Reconciliation: New predniSONE [Deltasone 10mg tablet] 10 mg PO DAILY 5 Days #5 tab Continued primidone 50 mg tablet 100 mg PO DAILY 90 Days #630 tab lisinopril 10 mg tablet 15 mg PO BID hwrrcnbk-qtm-ujgva acid 300 mcg-lycopene 600 mcg-lutein 300 mcg tablet 1 tab PO DAILY Propranolol HCl [Propranolol HCl ER] 80 mg PO DAILY Aspirin [Adult Low Dose Aspirin EC] 81 mg PO DAILY Primidone 250 mg PO HS Ergocalciferol (Vitamin D2) [Vitamin D2] 50,000 units PO WEEKLY - Problem Reconciliation Problems Reviewed?: Yes
== END 2019-09-14 15:21 | disposition home or self-care (01) | DRG 189 ==
LOC: ER 19:39 → 2ND 19:39 → OBSVTOIN 09-09 00:44 → 2ND 09-09 00:44
PROVIDERS: ADMIT Emergency Medicine; ATTEND Family Medicine
CPT/HCPCS: Q9967

== ENCOUNTER → 2020-01-01 09:48 | Outpatient (CLI) | payer MEDICARE, OTHER, SELFPAY | PROVIDERS: PCP Family Medicine; Visit Provider Family Medicine | DX: R06.02 Shortness of breath (principal); J44.9 Chronic obstructive pulmonary disease, unspecified | CPT/HCPCS: 94060; 94640 ==

== ENCOUNTER 2020-01-18 18:36 | Inpatient (IN) | payer MEDICARE, OTHER, SELFPAY ==
[2020-01-18] VITALS (10 sets, daily range): BP systolic 129–153; BP diastolic 87–98; PULSE 70–88; RESP 14–24; TEMP 36.4–37.1; O2SAT 69–94; BMI 21.6; BMI 23.3; BMI 21.2
--- NOTE | 2020-01-18 18:37 | XR_ITS ---
PROCEDURE: XR CHEST PORTABLE CLINICAL HISTORY: soa Shortness of air, smoker COMPARISON: [id number] XR ribs RT min 3V w CXR1V from 02/08/2018 XR CHEST PORTABLE from 08/25/2019 XR CHEST 2V from 09/08/2019 CT ANGIO CHEST from 09/08/2019 FINDINGS: Mild cardiomegaly without failure. COPD with chronic interstitial changes. There is a 9 mm nodular opacity overlying the mid aspect of the right upper lobe possibly due to a nipple shadow is the study is somewhat lordotic in nature. Follow-up upright PA and lateral chest may confirm. Cannot exclude the possibility of developing pulmonary nodule. No lobar consolidation or collapse. Lower thoracic curvature convex right IMPRESSION: COPD. Right midlung nodule versus nipple shadow. No acute finding Dictated by: Braxton Mcclendon MD 01/19/2020 07:12 Electronically signed by Braxton Mcclendon MD in [place] 01/19/2020 07:12
--- NOTE | 2020-01-18 18:37 | ECG_ITS ---
APPROVED REPORT Exam: Resting ECG HR:93 bpm ECG Measurements Heart Rate 93 AXES IL 166 P 57 QRSd 88 QRS 104 QT 342 T 16 QTc 425 <Conclusion> Sinus rhythm with premature supraventricular complexes Motion artifact Possible Left atrial enlargement Rightward axis Incomplete RBBB Pulmonary disease pattern Nonspecific ST and T wave abnormality Abnormal ECG Electronically signed by : Donnie Jeffrey, 01/20/2020 15:16:13
--- NOTE | 2020-01-18 18:39 | PC.NURSE ---
placed call to pt daughter per pt request
--- NOTE | 2020-01-18 18:42 | HMH.EDGENADL ---
ED Disposition Clinical Impression: COPD exacerbation CHF exacerbation Qualifiers: Heart failure type: unspecified Qualified Code(s): I50.9 - Heart failure, unspecified Respiratory failure with hypoxia Qualifiers: Chronicity: acute on chronic Qualified Code(s): J96.21 - Acute and chronic respiratory failure with hypoxia Disposition: Admitted As Inpatient Condition on Discharge: Serious Referrals: Provider,Referral, MD [Primary Care Provider] - - Critical Care Critical Care Time: Yes Attestation: On , the high probability of a clinically significant, sudden or life threatening deterioration of the following system(s) required my full and direct attention, intervention and personal management. The time I documented below is in addition to time spent performing reported procedures but includes the following listed in this critical care notation. Total Critical Care Time: 40 Vital system(s) involved:: Respiratory Failure My critical care processes included: Assessment & monitoring of V/S, Initial and Re-exams, Data Review/Interpretation, Coordinating Care, Medication Orders and management, Documentation Medical Decision Making - Medical Records Medical records reviewed: Yes: I reviewed the patient's medical records. - Elias Inquiry Pt receiving controlled substance: No Vital Signs: 01/18/20 18:36 01/18/20 19:00 01/18/20 19:20 Temperature 98.3 F Temperature Source Oral Pulse Rate 88 Pulse Rate [Right] 88 73 Respiratory Rate 23 17 Blood Pressure [Right Arm] 143/87 H 138/92 H Blood Pressure Mean [Right Arm] 105 107 Blood Pressure Source [Right Arm] Automatic Cuff Blood Pressure Position [Right Arm] Supine 02 Sat by Pulse Oximetry 69 L 91 L Oxygen Delivery Method Room Air Room Air 01/18/20 19:21 01/18/20 19:30 Temperature Temperature Source Pulse Rate 87 Pulse Rate [Right] 74 Respiratory Rate 14 Blood Pressure [Right Arm] 129/89 Blood Pressure Mean [Right Arm] 102 Blood Pressure Source [Right Arm] Automatic Cuff Blood Pressure Position [Right Arm] Supine 02 Sat by Pulse Oximetry 94 L Oxygen Delivery Method - Lab Data Lab results reviewed: Yes: I reviewed the patient's lab results. Lab Results 01/18/20 18:38: WBC 9.9, RBC 5.10, Hgb 16.3, Hct 48.7, MCV 95.6 H, MCH 32.0 H, MCHC 33.5, RDW 14.9, Plt Count 296, MPV 8.2, Neut % (Auto) 67.3, Lymph % (Auto) 23.7, [place] % (Auto) 6.5, Eos % (Auto) 1.7, Baso % (Auto) 0.9, Neut # (Auto) 6.7, Lymph # (Auto) 2.4, [place] # (Auto) 0.6, Eos # (Auto) 0.2, Baso # (Auto) 0.1 01/18/20 18:38: Sodium 141, Potassium 4.3, Chloride 102, Carbon Dioxide 25, Anion Gap 18.3 H, BUN 25 H, Creatinine 1.20, Estimated Creat Clear 43, Estimated GFR 58 L, Est GFR ( Amer) 70, Glucose 128 H, Calcium 9.4, Troponin I 0.08 H, NT-Pro-B Natriuret Pep 65223 H 01/18/20 18:38: Lactate 3.1 H 01/18/20 18:58: Specimen Source R/r, O2 % 50, ABG pH 7.48 H, ABG pCO2 24.6 L, ABG pO2 57.7 L, ABG HCO3 17.7 L, ABG Total CO2 18.5 L, ABG O2 Saturation 90, ABG Base Excess -5.8 L, Braxton Test Y Result diagrams: 01/18/20 18:38 01/18/20 18:38 Orders (Tests/Meds): ED MEDICATIONS Discontinued Medications Generic Name Dose Route Start Last Admin Trade Name Freq PRN Reason Stop Dose Admin Albuterol/Ipratropium 3 ml 01/18/20 18:44 01/18/20 19:20 Duoneb 3ml Neb IH 01/18/20 18:45 3 ml ONCE ONE Administration Furosemide 40 mg 01/18/20 20:27 Lasix 40mg/4ml Vial IV 01/18/20 20:28 ONCE ONE Methylprednisolone Sodium Succinate 125 mg 01/18/20 18:44 01/18/20 18:53 Solu-Medrol 125mg/2ml Vial IV 01/18/20 18:45 125 mg ONCE ONE Administration ORDERS Category Date Time Status XR chest portable Stat Exams 01/18/20 18:37 Taken Troponin I Q3H Lab 01/18/20 21:45 Ordered Troponin I Q3H Lab 01/19/20 00:45 Ordered Blood Culture Stat Micro 01/18/20 18:38 Received ABG [Arterial Blood Gas] Stat RT 01/18/20 18:37 Ordered ECG Request by
[2020-01-18 18:53] LABS: Basophils # 0.1 K/mm3 (0-0.2); Basophils % 0.9 % (0.1-2.0); Eosinophils # 0.2 K/mm3 (0.0-0.4); Eosinophils % 1.7 % (0.1-12.0); Hematocrit 48.7 % (42.0-52.0); Hemoglobin 16.3 g/dL (14.1-18.0); Lymphocytes # 2.4 K/mm3 (0.7-4.5); Lymphocytes % 23.7 % (10-50); Mean Corpuscular HGB Conc 33.5 g/dL (31.8-35.4); Mean Corpuscular Volume 95.6 fl (80-94); Mean Platelet Volume 8.2 fl (7.4-10.4); Monocytes # 0.6 K/mm3 (0.1-1.0); Monocytes % 6.5 % (1.7-9.3); Neutrophils # 6.7 K/mm3 (1.8-7.8); Neutrophils % 67.3 % (37.0-80.0); Platelet Count 296 K/mm3 (142-424); Red Cell Distribution Width 14.9 % (11.5-17.5); White Blood Count 9.9 K/mm3 (4.8-10.8)
[2020-01-18 18:59] LABS: ABG Base Excess -5.8 mmol/L (-2.4-2.3); ABG HCO3 17.7 mmhg (22.0-26.0); ABG Oxygen Saturation 90 % (90-100); ABG PCO2 24.6 mmhg (35.0-45.0); ABG PH 7.48 mmol/L (7.35-7.45); ABG PO2 57.7 mmhg (80-100); ABG TCO2 18.5 mmhg (23-27)
[2020-01-18 19:00] LABS: Allen's Test Y; Oxygen 50 %; Source R/R
[2020-01-18 19:02] LABS: Anion Gap 18.3 mEq/L (5-15); Blood Urea Nitrogen 25 mg/dl (9-20); Calcium 9.4 mg/dl (8.4-10.2); Carbon Dioxide 25 mmol/L (22.0-30.0); Chloride 102 mmol/L (98-107); Creatinine Clearance Estimated 43 mL/min (50-200); Estimated Glomerular Filt Rate 58 ml/min (>60); GFR (African American) 70 ML/MIN (>60); Glucose 128 mg/dl (74-100); Potassium 4.3 mmoL/L (3.5-5.1); Sodium 141 mmol/L (136-145)
[2020-01-18 19:15] LABS: NT Pro Brain Natriuretic Pep. 11900 pg/mL (0-450); Troponin I 0.08 ng/ml (0.00-0.034)
[2020-01-18 19:18] LABS: Lactic Acid 3.1 mmol/L (0.7-2.1)
[2020-01-18 20:55] LABS: Reflex Lactic Add Lactic Reflex
--- NOTE | 2020-01-18 21:22 | PC.NURSE ---
patient up to floor via stretcher.
[2020-01-18 22:40] LABS: Lactic Acid Follow Up (RFLX 1) 1.2 mmol/L (0.7-2.1)
[2020-01-18 22:52] LABS: Troponin I 0.08 ng/ml (0.00-0.034)
[2020-01-19] VITALS (13 sets, daily range): BP systolic 115–147; BP diastolic 75–93; PULSE 60–90; RESP 18–21; TEMP 36.4–37; O2SAT 81–92
[2020-01-19 01:00] LABS: Troponin I 0.07 ng/ml (0.00-0.034)
--- NOTE | 2020-01-19 04:30 | PC.NURSE ---
Pt new admit this shift for COPD/CHF exacerbation. Pt has diuresed well since arriving to floor. O2 on venti has been adjusted between 50%-35% based on O2 sats. Currently on 40% at this time. Pt is a stand by assist when ambulating due to SOA on exertion. No complaints reported to staff. Tele monitor showing NSR. VSS. Pt refused TEDS. Daughter can bring home medication in for pt. Will continue to wean O2 and monitor pt response.
[2020-01-19 07:34] LABS: Anion Gap 16.7 mEq/L (5-15); Blood Urea Nitrogen 22 mg/dl (9-20); Carbon Dioxide 24 mmol/L (22.0-30.0); Chloride 101 mmol/L (98-107); Creatinine Clearance Estimated 47 mL/min (50-200); Estimated Glomerular Filt Rate 81 ml/min (>60); GFR (African American) 98 ML/MIN (>60); Glucose 102 mg/dl (74-100); Potassium 3.7 mmoL/L (3.5-5.1); Sodium 138 mmol/L (136-145)
--- NOTE | 2020-01-19 08:11 | HMH.PHAVTE ---
[facility] Pharmacy VTE Monitoring - Patient Demographics Admission date: 01/18/20 Report Date: 01/19/20 Time: 08:11 Allergies/Adverse Reactions: Patient Allergies No Known Allergies Allergy (Verified 01/14/20 08:39) Height: 1.65 m Weight: 57.72 kg Patient Problems: Current Active Problems COPD exacerbation (Acute) CHF exacerbation (Acute) Respiratory failure with hypoxia (Acute) - VTE Risk Labs: VTE Related Lab Results Hgb 16.3 g/dL (14.1-18.0) 01/18/20 18:38 Hct 48.7 % (42.0-52.0) 01/18/20 18:38 Plt Count 296 K/mm3 (142-424) 01/18/20 18:38 BUN 22 mg/dl (9-20) H 01/19/20 06:42 Creatinine 0.90 mg/dl (0.66-1.25) D 01/19/20 06:42 Estimated Creat Clear 47 mL/min (50-200) 01/19/20 06:42 Was VTE Risk Assessment Performed: Yes VTE Score: 8 VTE Risk Level: Moderate Risk - Prophylaxis VTE Prophylaxis Ordered?: Yes Types of VTE Prophylaxis: TEDS Knee High Location of Applied Device: Bilateral Lower Extremeties - VTE Diagnosis Confirmed Treatment or plan recommended: Continue Current Treatment
--- NOTE | 2020-01-19 08:52 | HMH.HP ---
*Admission Date: 01/18/20 *Chief complaint: Chest tightness *History of present illness: 79-year-old male presented to the emergency department yesterday evening after he developed a tightening sensation across his lower chest. Patient has COPD and history of an inferior AL with previous hospitalizations for acute on chronic respiratory failure due to infections earlier in the year. Patient denied significant change in baseline cough or shortness of breath. He denied fevers or chills. Cough is productive of sputum that is clear. On evaluation patient was hypoxic and was placed on increased FiO2 of supplemental oxygen until ultimately he was on a Ventimask at 12 L/min. This maintained his O2 sats in the mid 90s. After work-up in the emergency department patient was diagnosed with acute respiratory failure due to COPD exacerbation and was admitted for further treatments of aerosols and steroids. Patient reports feeling well this morning and continues to deny any significant shortness of breath above baseline. Past medical history is significant for COPD with recent PFTs showing mild to moderate airway obstruction, inferior wall AL with coronary artery disease followed by Dr. Mora. Echocardiogram in May of this year showed ejection fraction of 45% with inferior wall hypokinesis as well as increased right ventricular pressures. Patient is oxygen dependent at home with flow rate of 3-1/2 to 4 L/min via nasal cannula. This will generally keep the patient in the high 80s to mid 90s. [facility] History I have reviewed the patient's past medical history: Yes Medical History: Reports:: Congestive Heart Failure, Chronic Obstructive Pulmonary Disease (COPD), Home Oxygen, Hyperlipidemia, Hypertension, Myocardial Infarction, Seizures Denies:: Cancer, Diabetes Mellitus Type 1, Diabetes Mellitus Type 2, Internal Pacemaker, MRSA *Have you ever received a pneumonia vaccine?: Yes *Have you received a flu vaccine this season?: Yes Other Medical History: Reports: Arthritis, Cataracts, Other Laterality Cases: Left: Arthroscopy Knee, Bilateral: Other Other Surgeries: Yes: Cardiac Catheterization, Cardiac Surgery, Colonoscopy, Coronary Stent. No: Pacemaker Amputation: No Fractures: No - *Social History Last grade of school completed: Some college Smoking Status: Former smoker Tobacco Type: cigarettes # Packs/Day (cigarettes): 2 #Yrs smoked (if former smoker): 45 Smoking End Date: 3 weeks ago Alcohol Intake: former Alcohol Intake Frequency:: 3 or more drinks per day Substance Use Type: denies use *Occupational Status:: retired Housing: house Household Members: children *Travel in the last 8 weeks: None Family Hx:: Cancer, Hypertension Review of Systems - Review of Systems Review of systems:: pertinent systems reviewed and negative unless documented below - Constitutional Denies anorexia, Denies body ache(s), Denies chills, Denies daytime sleepiness, Denies excessive sweating, Denies fatigue, Denies fever(s) - Eyes Denies blind spots - ENT Denies abnormal hearing - *Cardiovascular Reports shortness of breath, Denies chest pain at rest, Denies chest pain with activity, Denies radiating jaw, neck or arm pain, Denies fast heart rate - *Respiratory Reports cough, Reports shortness of breath, Reports shortness of breath with activity, Denies change in phlegm color, Denies chest congestion, Denies excessive phlegm production, Denies coughing up blood, Denies pain on inspiration, Denies pain with cough, Denies snoring, Denies stridor, Denies wheezing - *Gastrointestinal Denies abdominal pain - *Genitourinary Denies difficulty urinating - *Musculoskeletal Denies abnormal walking - Endocrine Denies cold intolerance, Denies excessive sweating, Denies flushing Meds Home Medications Medication Instructions Recorded Confirmed Type Aspirin [Adult Low Dose Aspirin EC] 81 mg PO DAILY 01/29/18 01/18/20 History Propranolol HCl [Propranolol HCl 80 mg
--- NOTE | 2020-01-19 09:56 | HMH.PHAINT ---
MEDICATION RECONCILIATION COMPLETED ON PATIENT USING PATIENT'S OWN RX BOTTLES AND EXTERNAL FILL HISTORY FROM PHARMACY. -JOS BEATTY, GRISD
--- NOTE | 2020-01-19 17:55 | PC.NURSE ---
PT IS SITTING UP IN THE CHAIR. NO COMPLAINTS OF DISCOMFORT. EARLIER THIS MORNING PT WAS VERY POSITIVE ABOUT GETTING TO GO HOME THIS AFTERNOON. PT HAS BEEN ON 4 L NC T/O THE SHIFT. AT REST O2 SATURATION WILL MAINTAIN 85-87% BUT WITH ANY MOVEMENT AT ALL PT WILL EASILY DROP IN THE LOW 70'S. THE ONLY TIME PT APPEARS TO BE SOA AND LABORED IN WHEN HE AMBULATES TO AND FROM THE BATHROOM AND PT DID NEED ASSISTANCE WITH A BATH THIS AFTERNOON DUE TO FEELING SOA . ON A FEW OCCASIONS WHEN O2 SATURATION DROPPED TO THE 70'S PT'S O2 NC WAS OFF AND PT HAD TO BE REMINDED TO PUT IT BACK ON. WHEN PT WAS QUESTIONED ABOUT FEELING COMFORTABLE WITH GOING HOME HE STATED HE WOULD REALLY LIKE TO TALK WITH SOMEONE ABOUT MAYBE GETTING HOME HEALTH TO COME TO HIS HOME TO HELP HIM AFTER DISCHARGE. PT STATED HE WAS OKAY WITH STAYING ANOTHER DAY TO TALK TO CARE MANAGEMENT TOMORROW. WILL CONTINUE TO MONITOR.
--- NOTE | 2020-01-19 23:16 | PC.NURSE ---
#20g in left ac infiltrated. IV removed at this time. LUE elevated on a pillow and wrapped w/ a warm compress. Pt denies pain or burning sensation. Will continue to monitor. New IV access in right ac.
[2020-01-20] VITALS: BP 140/74; PULSE 52; PULSE 60; RESP 16; TEMP 36.6; O2SAT 89
[2020-01-20 00:37] VITALS: PULSE 66
[2020-01-20 04:00] VITALS: BP 111/67; PULSE 70; PULSE 74; RESP 14; TEMP 36.4; O2SAT 87
[2020-01-20 05:00] VITALS: BMI 20.7
--- NOTE | 2020-01-20 06:03 | PC.NURSE ---
Pt rested well this shift. O2 sats maintained between 87%-90% on 4LNC. Tele showing NSR. Pt does continue to have SOA w/ minimal exertion. Pt stated multiple times his desire to go home this am as well. He is voiding clear, dark urine via urinal w/ standby assistance. Will continue to monitor.
[2020-01-20 06:21] LABS: Basophils % 0.1 % (0.1-2.0); Eosinophils % 0.1 % (0.1-12.0); Hematocrit 49.2 % (42.0-52.0); Hemoglobin 16.2 g/dL (14.1-18.0); Lymphocytes # 1.2 K/mm3 (0.7-4.5); Lymphocytes % 11.8 % (10-50); Mean Corpuscular HGB Conc 32.9 g/dL (31.8-35.4); Mean Corpuscular Hemoglobin 31.2 pg (27.0-31.2); Mean Platelet Volume 8.3 fl (7.4-10.4); Monocytes # 0.3 K/mm3 (0.1-1.0); Monocytes % 2.9 % (1.7-9.3); Neutrophils # 8.6 K/mm3 (1.8-7.8); Neutrophils % 85.1 % (37.0-80.0); Platelet Count 264 K/mm3 (142-424); Red Blood Count 5.19 M/mm3 (4.60-6.20); White Blood Count 10.1 K/mm3 (4.8-10.8)
[2020-01-20 06:30] LABS: MANUAL DIFFERENTIAL MANUAL DIFFERENTIAL (MANUAL DIFF)
[2020-01-20 06:33] LABS: Chloride 103 mmol/L (98-107)
[2020-01-20 06:34] LABS: Potassium 3.8 mmoL/L (3.5-5.1); Sodium 132 mmol/L (136-145)
[2020-01-20 06:37] LABS: Anion Gap 8.8 mEq/L (5-15); Blood Urea Nitrogen 26 mg/dl (9-20); Calcium 8.9 mg/dl (8.4-10.2); Carbon Dioxide 24 mmol/L (22.0-30.0); Creatinine Clearance Estimated 46 mL/min (50-200); Estimated Glomerular Filt Rate 81 ml/min (>60); GFR (African American) 98 ML/MIN (>60); Glucose 128 mg/dl (74-100); Magnesium 2.2 mg/dl (1.6-2.3)
[2020-01-20 06:39] LABS: Lymphocytes % 6 % (10-50); Monocytes % 2 % (2-9); Neutrophils % 87 % (42-76); Platelet Estimate Normal; RBC Morphology Normal; Total Cells Counted 100
[2020-01-20 08:00] VITALS: BP 129/81; PULSE 72; PULSE 80; RESP 16; TEMP 36.4; O2SAT 87
--- NOTE | 2020-01-20 08:20 | HMH.DCSUM ---
General - General Admission date:: 01/18/20 Discharge date: 01/20/20 HPI HPI: 79-year-old male presented to the emergency department yesterday evening after he developed a tightening sensation across his lower chest. Patient has COPD and history of an inferior OK with previous hospitalizations for acute on chronic respiratory failure due to infections earlier in the year. Patient denied significant change in baseline cough or shortness of breath. He denied fevers or chills. Cough is productive of sputum that is clear. On evaluation patient was hypoxic and was placed on increased FiO2 of supplemental oxygen until ultimately he was on a Ventimask at 12 L/min. This maintained his O2 sats in the mid 90s. After work-up in the emergency department patient was diagnosed with acute respiratory failure due to COPD exacerbation and was admitted for further treatments of aerosols and steroids. Patient reports feeling well this morning and continues to deny any significant shortness of breath above baseline. Past medical history is significant for COPD with recent PFTs showing mild to moderate airway obstruction, inferior wall OK with coronary artery disease followed by Dr. Mora. Echocardiogram in May of this year showed ejection fraction of 45% with inferior wall hypokinesis as well as increased right ventricular pressures. Patient is oxygen dependent at home with flow rate of 3-1/2 to 4 L/min via nasal cannula. This will generally keep the patient in the high 80s to mid 90s. Hospital Course Hospital Course: Patient was admitted, diuresed with intravenous Lasix, responded very nicely and felt much better, oxygen was able to be weaned down to nasal cannula device with good comfort levels. Patient felt well, this morning he felt like he was able to go home. Plan will be to discharge patient home with upgrading his respiratory therapy treatments to DuoNeb 3 times daily along with his daily inhaler, as well as home oxygen. He will be on daily Lasix and potassium supplementation. Patient is a good candidate for home health, based on my [id number] examination today he cannot leave the home without a significant degree of difficulty with dyspnea and pain. He needs evaluation for PT/OT/home safety/nursing care. Objective Vital signs: Temp Pulse Resp BP Pulse Ox 97.6 F 74 14 111/67 87 L 01/20/20 04:00 01/20/20 04:00 01/20/20 04:00 01/20/20 04:00 01/20/20 04:00 Narrative: Patient is alert, pleasant, appears chronically ill and cachectic. Oropharynx clear, no JVD. Heart rate regular. Chest is barrel-shaped, poor air movement but fairly clear, seems to be at his baseline. Abdomen scaphoid and soft. Extremities with muscle wasting and cachexia but good skin turgor, no edema, good distal pulses. Neurologic exam is intact. Skin is without rashes. ENT exam otherwise clear. Results Labs on day of discharge: Labs from last 24 hours 01/20/20 01/20/20 05:52 05:52 WBC 10.1 RBC 5.19 Hgb 16.2 Hct 49.2 MCV 95.0 H MCH 31.2 MCHC 32.9 RDW 15.0 Plt Count 264 MPV 8.3 Neut % (Auto) 85.1 H Lymph % (Auto) 11.8 [place] % (Auto) 2.9 Eos % (Auto) 0.1 Baso % (Auto) 0.1 Neut # (Auto) 8.6 H Lymph # (Auto) 1.2 [place] # (Auto) 0.3 Eos # (Auto) 0.0 Baso # (Auto) 0.0 Total Counted 100 Neutrophils % (Manual) 87 H Band Neutrophils % 5.0 Lymphocytes % (Manual) 6 L Monocytes % (Manual) 2 Platelet Estimate Normal RBC Morphology Normal Sodium 132 L Potassium 3.8 Chloride 103 Carbon Dioxide 24 Anion Gap 8.8 BUN 26 H Creatinine 0.90 Estimated Creat Clear 46 Estimated GFR 81 Est GFR ( Amer) 98 Glucose 128 H D Calcium 8.9 Magnesium 2.2 DS: Diagnosis - Discharge Diagnosis (1) Acute exacerbation of chronic obstructive airways disease Status: Acute (2) Acute systolic CHF (congestive heart failure), [place]
--- NOTE | 2020-01-20 09:57 | SW/DCPLANNER ---
Addendum entered by Eunice Medina 01/20/20 11:07: Malka has called and stated this patient will begin services [facility] tomorrow. I have also spoke with Sarah Pulido to confirm neb machine will be delivered to this patient today. Addendum entered by Eunice Medina 01/20/20 10:14: I have also faxed patient information/order to [facility] for a home nebulizer machine. I will follow up with [facility] once patient information is reviewed. Original Note: I have spoke with this patient regarding discharge plans. I have received an order for home health for this patient. Patient is agreeable to home health services and preferred that patient information be faxed to [facility]. Patient stated that he already has home O2 and has no needs with this at home. Patient will discharge home today. I will follow up with [facility] once patient information is reviewed.
[2020-01-20 09:59] VITALS: PULSE 70
--- NOTE | 2020-01-20 15:06 | HMH.PHAINT ---
DISCHARGE MEDICATION COUNSELING COMPLETED. 3 PRESCRIPTIONS FOR LASIX, POTASSIUM AND DUONEBS SENT TO [facility]. PT VERBALIZED UNDERSTANDING. PT ENCOURAGED TO CALL US BACK WITH ANY QUESTIONS OR CONCERNS.
== END 2020-01-20 11:20 | disposition home health service (06) | DRG 190 ==
LOC: ER 20:33 → 2ND 20:46
PROVIDERS: Admitting Provider Internal Medicine Adolescent Medicine; Emergency Provider Emergency Medicine; PCP Family Medicine; Visit Provider Family Medicine
DX: J44.1 Chronic obstructive pulmonary disease with (acute) exacerbation (principal); I50.21 Acute systolic (congestive) heart failure; J96.21 Acute and chronic respiratory failure with hypoxia; I11.0 Hypertensive heart disease with heart failure; Z99.81 Dependence on supplemental oxygen; I25.2 Old myocardial infarction; Z95.5 Presence of coronary angioplasty implant and graft; E78.5 Hyperlipidemia, unspecified; Z79.899 Other long term (current) drug therapy; G40.909 Epilepsy, unspecified, not intractable, without status epilepticus
CPT/HCPCS: 36415; 71045; 80048; 82803; 83605; 83735; 83880; 84484; 85007; 85025; 87040; 93005; 94640; 94760; 96365; 96375; 99284; 99285

== ENCOUNTER → 2020-03-24 12:48 | Outpatient (CLI) | payer MEDICARE, OTHER, SELFPAY ==
[2020-03-24 13:55] VITALS: PULSE 65; PULSE 70
--- NOTE | 2020-03-24 14:22 | CT_ITS ---
PROCEDURE: CT CHEST WO CON CLINICAL INDICATION: ILD, interstitial lung disease ild,,,soa COMPARISON: CT BX CT BIOPSY from 05/15/[address] chest wo con from 08/28/[address] ANGIO CHEST from 09/08/2019 TECHNIQUE: Axial images obtained with sagittal and coronal reformats. All CT scans at the facility use one or more dose reduction, viz: automated exposure control, ma/kV adjustment per patient size (including targeted exams where dose is matched to indication, i.e. head), or iterative reconstruction technique. FINDINGS: Atherosclerotic calcification involves the aorta. Coronary artery calcifications are also present. There is mild ectasia of the ascending aorta at 4 cm. Scattered small nodes are present in the mediastinum not significantly changed. There is panlobular emphysematous changes with COPD. Scattered areas of scarring is noted. No significant interlobular septal thickening. No pulmonary fibrosis. There is some mild atelectatic or fibrotic changes in the right lower lobe posteriorly with some patchy ground-glass attenuation minimal atelectatic or fibrotic changes are present in the left upper lobe medially. No acute bony findings. Left renal cyst is present at 6.4 cm. There is a hyperdense right renal nodule not significantly changed and could be due to hyperdense cyst measuring 1.5 cm. IMPRESSION: 1. Panlobular emphysema with changes of COPD. 2. No interlobular septal thickening or pulmonary fibrosis. 3. Scattered areas of scarring and/or atelectatic change 4. Coronary artery calcifications with mild ectasia of the ascending aorta Dictated by: Braxton Mcclendon MD 03/31/2020 09:39 Braxton Mcclendon MD in [place] 03/31/2020 09:39
== END ==
PROVIDERS: PCP Family Medicine; Visit Provider Internal Medicine Pulmonary Disease
DX: J84.9 Interstitial pulmonary disease, unspecified
CPT/HCPCS: 71250; 94060; 94640; 94727; 94729